=== PATIENT | male | born 1945 | race Caucasian/White ===

== ENCOUNTER 2016-10-22 07:48 | Inpatient (IN) | payer OTHER, MEDICARE ==
[~2016-10-22] VITALS: Ht 176.5 cm; Wt 123.2 kg
[2016-10-22] VITALS (10 sets, daily range): BP systolic 127–155; BP diastolic 68–91; PULSE 63–120; RESP 16–28; O2SAT 86–96
[~2016-10-22 07:48] MED LIST: ALBU18HF INH; ALBU2.5V4 INHALATION; ASPI-973 PO; COLC0.6T52 PO; DILT180C83 PO; DILT240C9 PO; FENO160T14 PO; FLUT16SP NS; FURO40TA4 PO; GABA-502 PO; GLPZ5T PO; HYDR-4150 PO; LEVO150T5 PO; LEVO500T79 PO; LISI-571 PO; LOV120 SUBQ; MOME13HF IH; MONT10TA20 PO; MULT-1073 PO; NIAC1000 PO; OMEG-38 PO; POTA10TA12 PO; PRAM0.5T3 PO; PRE10 PO; RANI150C4 PO; ROSU40TA PO; SLO64 PO; TIOT18CA3 IH; WARF5TAB7 PO; ZYL100 PO
[2016-10-22 08:19] LABS: APPEARANCE,URINE CLOUDY (CLEAR,HAZY); COLOR,URINE DARK YELLOW (YELLOW); OCCULT BLOOD,URINE LARGE (NEGATIVE); PH,URINE 5.5 (5.0-8.0); UROBILINOGEN,URINE NORMAL (NORMAL)
[2016-10-22] MEDS ORDERED: Albuterol-Ipratropium 3 mL Inhalation Solution NEB ONE (08:35)
[2016-10-22] MEDS ORDERED: Phenazopyridine 97.5 mg Tablet PO ONE (08:35)
[2016-10-22 08:50] LABS: BASOPHILS % (AUTO) 0.1 % (0-3); EOSINOPHILS % (AUTO) 0 % (0-5); MONOCYTES % (AUTO) 9.9 % (4-12); Mean Corpuscular Hemoglobin 30.8 pg (27.0-35.0); Mean Corpuscular Volume 91.4 fL (81-100); NEUTROPHILS % (AUTO) 82.7 % (40-74); Platelet Count 165 bil/L (150-400)
[2016-10-22] MEDS ORDERED: cefTRIAXone Inj 1,000 MG, Lidocaine PF 1% Inj 2.1 ML in Syringe 0 EACH IM ONE ×2 (08:50→09:20)
[2016-10-22] MEDS ORDERED: Ceftriaxone 1,000 mg/50 mL D5W Minibag Plus IV ONE ×2 (08:55)
[2016-10-22] MEDS ORDERED: Diltiazem CD 240 mg ER24 Capsule PO ONE (09:25)
[2016-10-22] MEDS ORDERED: Diltiazem 5 mg/mL 5 mL Inj IVPUSH ONE (09:30)
[2016-10-22] MEDS ORDERED: 0.9% Sodium Chloride 100 ML ONE (09:51)
[2016-10-22 09:57] LABS: INR 1.85 ratio
[2016-10-22] MEDS: Ceftriaxone 1,000 mg/50 mL D5W Minibag Plus IV ONE ×4 (10:02→10:59)
--- NOTE | 2016-10-22 10:11 | DRSVH ---
PROCEDURE: X-RAY CHEST ONE VIEW, PORTABLE ([id number]) INDICATIONS: short of breath TECHNIQUE: One view of the chest was acquired. COMPARISON: [facility], CR, XR CHEST 2VW, 08/28/2016, 12:04. FINDINGS: Surgical changes and devices: None. Lungs and pleura: No pleural effusions or pneumothorax. Lungs are clear. Mediastinum: Mediastinal contours appear normal. Heart size is normal. Bones and chest wall: No suspicious bony lesions. Overlying soft tissues appear unremarkable. IMPRESSION: Source of shortness of breath is not seen. Mildly reduced inspiratory volume. Dictated by: Carlton Nichole M.D. on 10/22/2016 at 10:09 Approved by: Carlton Nichole M.D. on 10/22/2016 at 10:09
[2016-10-22] MEDS ORDERED: 0.9% Sodium Chloride 1,000 ML IV ONE (10:45)
[2016-10-22] MEDS: Sodium Chloride LOK Flush 10 mL Syringe IVFLUSH SCH ×2 (10:53→23:49)
--- NOTE | 2016-10-22 10:54 | ED.REPORT ---
HPI- Male Date of Service Oct 22, 2016 ED Provider: Richard Wallis MD 70yoM with history of CAD with angioplasty x1, as well as Afib on diltiazem and warfarin, asthma on albuterol nebulizer and inhaler, and chronic lower back pain presents with increased urinary frequency urgency and dysuria. The patient denies any penile discharge, the patient has never had a UTI. The issues began yesterday. The patient states that two days ago his back began bothering him more bilaterally. He has a lumbar surgery performed November 2015 and since that time he has been relatively pain free. The back pain occurred 1 day before the urinary symptoms. The patient also describes some shortness of breath. He has a history of asthma and was on inhaled steroids until his insurance would not pay for them. He currently manages his asthma with only albuterol. Nursing Notes Stated Complaint: PAINFUL URINATION Chief Complaint: Male Abdominal Pain Nursing Notes Reviewed: Yes Allergies: Coded Allergies: Penicillins (Verified Allergy, Intermediate, HIVES, 12/16/15) Scheduled Allopurinol (Allopurinol) 100 Mg Tablet 100 MG PO BID Aspirin (Aspirin) 81 Mg Tablet 81 MG PO DAILY Calcium Carbonate/Vitamin D3 (Calcium + Vitamin D Tablet) 1 Each Tablet 2 EACH PO MORNING Diltiazem ER (Diltiazem ER) 240 Mg Cap.er.deg 240 MG PO MORNING Diltiazem ER (Diltiazem ER) 180 Mg Cap.er.24h 180 MG PO HS Fenofibrate (Fenofibrate) 160 Mg Tablet 160 MG PO DAILY Furosemide (Furosemide) 40 Mg Tablet 40 MG PO DAILY Gabapentin (Gabapentin) 100 Mg Capsule 100 MG MORNING Gabapentin (Gabapentin) 100 Mg Capsule 100 MG PO HS Glipizide (Glipizide) 5 Mg Tablet 5 MG PO BID Levothyroxine (Levothyroxine) 150 Mcg Tablet 150 MCG PO QAM Lisinopril (Lisinopril) 20 Mg Tablet 20 MG PO MORNING Magnesium Chloride (Slow-Mag) 64 Mg Tablet 2 TABLET PO QAM Multivits-Min/FA/Lycopene/Lut (Centrum Silver Tablet) 1 Each Tablet 1 EACH PO DAILY Niacin ER (Niaspan) 1,000 Mg Tablet 2,000 MG PO HS Potassium Chloride ER (Potassium Chloride ER) 10 Meq Tablet 20 MEQ PO DAILY TAKE WITH FOOD Pramipexole Dihydrochloride (Mirapex) 0.5 Mg Tablet 0.5 MG PO QPM Ranitidine (Ranitidine) 150 Mg Capsule 150 MG PO BID Rosuvastatin Calcium (Crestor) 40 Mg Tablet 40 MG PO DAILY Tamsulosin (Flomax) 0.4 Mg Capsule 0.4 MG PO BID Warfarin Sodium (Warfarin Sodium) 5 Mg Tablet 5 MG PO DAILY Scheduled PRN Albuterol Neb Soln (Albuterol Neb Soln) 2.5 Mg/3 Ml Vial.neb 1 VIAL INHALATION Q4H PRN PRN For Shortness of Breath Albuterol Sulfate (Ventolin HFA Inhaler) 200 Puff/18 Gm Inhaler 2 PUFF INH Q4 PRN PRN For Wheezing Colchicine (Colcrys) 0.6 Mg Tablet 1-2 TABLET PO PRN GOUT Fluticasone Propionate (Fluticasone Propionate Nasal) 16 Gm [place].susp 2 SPRAY NS DAILY PRN PRN Nasal Congestion Miscellaneous Medications [address]-3/Dha/Epa/Fish Oil (Fish Oil 1,000 mg Softgel) 1 Each Capsule 1 EACH PO General Time Seen by MD: 08:30 Chief Complaint Dysuria, Urinary frequency, Urinary urgency, Urination painful, Other Hx Obtained From: Patient Arrived By: Walk-in Onset Occurred: 1 day ago Context of Onset: Spontaneous Symptom Duration: Since onset Location: : Back Quality: Painful, Sharp, Throbbing Radiation: : Does not radiate Severity: Current: Mild Severity: Maximum: Moderate Recent Healthcare: No recent doctor visit, No recent hospitalization Similar Sx Previous: No Risk- Male Torsion Risk Stratification RF Statements: Risk factors reviewed Past Medical History Past Medical History Notes: PCP: Dr. North Past Medical History previous DC Reports: Asthma, COPD, Coronary artery disease, Diabetes mellitus, GERD, Hyperlipidemia, Hypertension Reports: Atrial fibrillation, Morbid Obesity, Thyroid disease Past Surgical History Laminectomy, 12/03/15 at [facility], [place] Cardiac stent placement Prostate surgery Knee surgery Reports: Back/neck surgery Family History Mother of CHF Smoking History Former Smoker Social History Alcohol Use: Denies alcohol use Drug Use: Denies drug use Other Social History: Good social support, Occupation retired [employer] Ambulatory Status Independent Review of Systems Basic Review of Systems Eyes: Vision NL, No discharge ENT: Hearing NL, No pain, No nasal congestion, No pharyngeal pain Respiratory: No cough, No wheeze Cardiovascular: No chest pain, No palpitations Hematologic: No bleeding, No bruising Endocrine: No cold intolerance, No heat intolerance, No weight gain, No weight loss Allergy / Immune: No allergy Neurologic: NL mental status, No weakness, No numbness Psychiatric: Normal thought content Constitutional: Denies: Chills, Fever GI: Reports: Constipation, Denies: Abdominal pain, Diarrhea, Hematemesis, Hematochezia, Melena, Vomiting Male: Reports Dysuria, Reports Urinary frequency, Reports Urinary urgency, Denies Hematuria, Denies Penile discharge, Denies Penile lesion, Denies Testicular pain, Denies Testicular swelling Musculoskeletal: Reports: Back pain, Denies: Extremity swelling, Joint pain Skin: Denies Diaphoresis, Denies Rash, Denies Unexplained bruises Complete sys rev & neg: except as marked. Physical Exam Initial Vital Signs Vital Signs (First) Date Time Temp Pulse Resp B/P Pulse Ox O2 Delivery O2 Flow Rate FiO2 10/22/16 07:53 37.0 63 28 93 Room Air 10/22/16 08:09 148/91 Initial VS: Reviewed General/Constitutional: Well-developed, Well-nourished Head / Eyes: Atraumatic, Normocephalic, PERRL ENT: Mucous membranes moist, Conjunctiva normal, No scleral icterus Neck: Supple, Non-tender, Full range of motion Abdomen / GI: Soft, Non-tender, No guarding, No rebound, No distention Back: No CVA tenderness Lymphatic: No lymphadenopathy Extremities: Vascular intact, Neuro intact, No swelling, No tenderness Skin: Warm, Dry, No cyanosis Neurologic: Alert, Oriented, Nonfocal Psychiatric: Mood/affect normal, Behavior normal, Normal thought content General/Constitutional: Awake, Alert, No acute distress, Cooperative, Not toxic appearing Abdomen: Soft, Non-tender, No guarding, No rebound, BS normoactive, No distention, No palpable mass, No pulsatile mass Organomegaly / Mass / Hernia: Positive: Hernia umbilical Respiratory / Chest: No rales, No rhonchi, No wheezing, No stridor, No chest tenderness Diminished Breath Sounds: Positive: Decreased bilateral Cardiovascular: No gallop, No murmurs, No rubs, Peripheral circulation NL, Pulses = bilaterally Heart Rate / Rhythm: Positive: Irreg irregular rhythm, Tachycardia Interpretation & Diagnostics Lab Results Interpretation Result Diagram: 10/22/1684210/22/16842 Test 10/22/16 08:00 10/22/16 08:30 10/22/16 08:43 Urine Color Dark yellow (YELLOW) Urine Appearance Cloudy (CLEAR,HAZY) Urine pH 5.5 (5.0-8.0) Urine Specific [place] 1.030 (1.003-1.035) Urine Protein 100mg/dL (NEG,TRACE) Urine Glucose (UA) Negativemg/dL (NEGATIVE) Urine Ketones Tracemg/dL (NEGATIVE) Urine Occult Blood Large (NEGATIVE) Urine Nitrite Positive (NEGATIVE) Urine Bilirubin Negative (NEGATIVE) Urine Urobilinogen Normalmg/dL (NORMAL) Urine Leukocyte Esterase Small (NEGATIVE) Urine RBC 3-10/hpf (0-2) Urine WBC 11-50/hpf (0-5) Urine Epithelial Cells Occasional/hpf (NONE-MOD) Urine Crystals None seen (NONE SEEN) Urine Bacteria Moderate/hpf (NONE-FEW) Urine Hyaline Casts None/lpf (NONE) Urine Granular Casts None seen (NONE SEEN) Urine Waxy Casts None seen (NONE SEEN) Urine Red Blood Cell Casts None seen (NONE SEEN) Urine White Blood Cell Casts None seen (NONE SEEN) Urine Mucus None seen (None Seen) Urine Trichomonas None seen (NONE SEEN) Urine Yeast None (NONE SEEN) Urinalysis Comment None Urine Culture Reflexed Indicated Troponin T 0.033ug/L (0.0-0.011) White Blood Count 22.9th/mm3 (3.8-10.1) Red Blood Count 4.78mil/mm3 (4.40-5.80) Hemoglobin 14.7g/dL (13.8-17.2) Hematocrit 43.7% (41.0-50.0) Mean Corpuscular Volume 91.4fL (81-100) Mean Corpuscular Hemoglobin 30.8pg (27.0-35.0) Mean Corpuscular Hemoglobin Concent 33.6% (32.0-37.0) Red Cell Distribution Width 15.3% (12.3-15.4) Platelet Count 165bil/L (150-400) Neutrophils (%) (Auto) 82.7% (40-74) Lymphocytes (%) (Auto) 7.0% (14-46) Monocytes (%) (Auto) 9.9% (4-12) Eosinophils (%) (Auto) 0% (0-5) Basophils (%) (Auto) 0.1% (0-3) Prothrombin Time 20.1sec (8.1-12.5) Prothromb Time International Ratio 1.85ratio Sodium Level 137mEq/L (134-144) Potassium Level 3.6mEq/L (3.5-5.2) Chloride Level 96mEq/L (97-108) Carbon Dioxide Level 25mmol/L (18-29) Blood Urea Nitrogen 16mg/dL (8-27) Creatinine 1.30mg/dL (0.76-1.27) Estimat Glomerular Filtration Rate 58mL/min (>59) Glucose Level 162mg/dL (60-99) Lactic Acid Level 1.5mmol/L (0.4-2.0) Calcium Level 9.4mg/dL (8.5-10.1) Total Bilirubin 1.1mg/dL (0.0-1.2) Aspartate Amino Transf (AST/SGOT) 20U/L (0-50) Alanine Aminotransferase (ALT/SGPT) 16U/L (0-44) Alkaline Phosphatase 49U/L (25-160) Total Protein 6.6g/dL (6.4-8.4) Albumin 4.1g/dL (3.4-5.0) Procalcitonin 0.19ng/mL (0.00-0.08) Hold Miller Top Tube Received (Received) ECG Interpretation Normal ECG Interpretation: No acute ischemic changes Abnormal Rate: 100 Rhythm / Conduction: Atrial fibrillation Re-Eval/Medical Decision Med Decision/Clinical Course 70yoM with CAD, Afib, COPD, presents with increased urinary frequency urgency and dysuria. The patient began to develop a temperature while in the ED. Urine consistent with infection and new onset fever consistent with pyelonephritis. Labs ordered for FENA calculation. IV fluids and Rocephin IV started for pyelonephritis. The patient also stated that he has been having some shortness of breath, history of asthma/COPD he is not taking inhaled steroids due to out of pocket cost. Physical exam has decreased air movement but no notable wheezing or rales. CXR negative for pneumonia. However EKG shows afib tachycardia without acute ischemic changes. The patient has an elevated troponin x1 in the ED. The patient denies history of chronic kidney disease however review of previous labs show GFR in 60s consistent with Stage 2 CKD. Elevated Troponin could be due to CKD but must be trended. The patient is on Warfarin for afib. Patient to be admitted to [facility] given need for antibiotics and cardiac monitoring. Consultation : Referral / Consult Name: Amado Spear MD Consulted With: Hospitalist Director Of Vital Statistics: Accepts admit Discharge & Departure Impression: Primary Impression: Pyelonephritis Additional Impressions: Elevated troponin level Afib Atrial fibrillation type: persistent Qualified Code: I48.1 - Persistent atrial fibrillation Tachycardia COPD (chronic obstructive pulmonary disease) COPD type: COPD with acute exacerbation Qualified Code: J44.1 - Chronic obstructive pulmonary disease with (acute) exacerbation Disposition: ADMITTED TO HOSPITAL Discharge Condition All VS Reviewed: Yes Condition: Stable Referrals: Triston North MD (PCP) Attending Statment The patient was seen and examined together with Dr. Velez on 10/22/16 and I agree with the history, exam and plan as outlined in the note above. copies to: Triston North MD, Nicholas K DO Oct 22, 2016 09:32 Richard Wallis MD Oct 22, 2016 12:45
[2016-10-22] MEDS ORDERED: GLIP5POW MC (11:18)
[2016-10-22] MEDS ORDERED: GLPZ5T PO (11:19)
[2016-10-22] MEDS ORDERED: GABA-500 (11:22)
[2016-10-22] MEDS ORDERED: GABA-500 PO (11:22)
[2016-10-22] MEDS ORDERED: LISI-567 PO (11:24)
[2016-10-22] MEDS ORDERED: CALC-140 PO (11:33)
[2016-10-22] MEDS ORDERED: TAMS0.4C98 PO (11:33)
[2016-10-22] MEDS: 0.9% Sodium Chloride 1,000 ML IV SCH (12:13)
[2016-10-22] MEDS ORDERED: Alum-Mag Hydrox-Simeth 30 mL Suspension PO PRN (12:15)
[2016-10-22] MEDS ORDERED: Ondansetron 2 mg/mL 2 mL Inj IVPUSH PRN (12:15)
[2016-10-22] MEDS: cefTRIAXone Inj 2,000 MG in Dextrose 5% Minibag Plus 50 ML IV SCH (12:15)
[2016-10-22] MEDS ORDERED: MeTOProlol 1 mg/mL 5 mL Inj IVPUSH ONE (13:15)
--- NOTE | 2016-10-22 16:11 | DRSVH ---
PROCEDURE: US RENAL SONOGRAM INDICATIONS: suspected pyelonephritis TECHNIQUE: Real-time scanning was performed of the kidneys and bladder, with image documentation. COMPARISON: None. FINDINGS: Kidneys: Kidneys are normal in size. Right kidney measures 13.5 cm long; left kidney measures 13.3 cm long. Right renal cortical thickness is 1.6 cm; left renal cortical thickness is 1.4 cm. Renal c ortical echotexture is normal. No hydronephrosis or nephrolithiasis. No suspicious solid mass lesio ns. Right renal cyst above the superior pole measuring 20 mm. Bladder: Pre-void bladder volume is 51 mL. Post-void residual is 15 mL. Pre-void images demonstrat e no intraluminal masses or stones. On pre-void images, there ureteral jets are noted with color Dop pler interrogation. (Of note, ureteral jets may not be detectable in up to 25% of cases due to insuf ficient differences in specific gravity between ureteral and bladder urine). Miscellaneous: No free pelvic fluid. IMPRESSION: 2 cm right renal cyst otherwise kidneys are grossly normal. Dictated by: Ramon Cerrato [facility] Interpreted: Pilar Raymundo MD on 10/22/2016 at 16:09 Transcribed by: DAVID on 10/22/2016 at 16:10 Approved by: Pilar Raymundo MD, PhD on 10/22/2016 at 17:15
[2016-10-22] MEDS ORDERED: MeTOProlol 1 mg/mL 5 mL Inj IVPUSH PRN (16:20)
[2016-10-22] MEDS ORDERED: Glucose 40% Oral Gel 15 Gm Tube PO PRN (16:25)
--- NOTE | 2016-10-22 16:29 | PCM.HPMED ---
Subjective Date of Service Oct 22, 2016 Primary Provider: Admitting Physician: Amado Spear MD Primary Care Physician: Triston North MD Attending Physician: Amado Spear MD Chief Complaint: Dysuria, shortness of breath History of Present Illness: Patient is a 70 year old male with history of CAD with angioplasty, Afib, asthma , BPH, and chronic lower back pain who presents with increased urinary frequency urgency and dysuria. He states his symptoms started yesterday afternoon and worsened throughout the night. He reports he has been having urgency, going to urinate every 15 minutes at worst overnight, with small amounts of urine. He states his bladder feels full and he does not completely empty it. He states he was in his usual state of health other than some shortness of breath related to his asthma over the past 4 weeks since a URI about a month ago. The patient states that two days ago his back began bothering him more bilaterally. He has a lumbar surgery performed November 2015 and since that time he has been relatively pain free. The back pain occurred 1 day before the urinary symptoms. He reports some right sided flank pain as well. The patient denies any penile discharge, and has never had a UTI. In the ED, the patient was febrile at 38 C, tachycardic at 120. WBC was 22.9, Cr was 1.3, glucose 162. Lactic acid was normal at 1.5. Troponin was 0.033, procalcitonin 0.19. CXR was normal. EKG showed afib with RVR without ischemic changes. The patient denies history of chronic kidney disease however review of previous labs show GFR in 60s consistent with Stage 2 CKD. He has a history of asthma/COPD he is not taking inhaled steroids due to out of pocket cost. Review of Systems: Comprehensive review of systems conducted and was negative except for the pertinent positives listed above. Allergies Coded Allergies: Penicillins (Verified Allergy, Intermediate, HIVES, 12/16/15) Home Medications Albuterol neb Albuterol inhaler Allopurinol 100 mg BID Aspirin 81 mg daily Calcium/Vitamin D Colchicine 0.6 - 1.2 mg PRN Diltiazem 240 mg AM, 180 mg PM Fenofibrate 160 mg daily Fluticasone nasal spray Furosemide 40 mg daily Gabapentin 100 mg BID Glipizide 5 mg BID Levothyroxine 150 mcg daily Lisinopril 20 mg daily Mg chloride 128 mg daily Multivitamin Niacin 2000 mg qhs Fish oil KCl 20 meq daily Mirapex 0.5 mg qPM Ranitidine 150 mg BID Rosuvastatin 40 mg daily Tamsulosin 0.4 mg BID Warfarin 5 mg daily PMH Asthma COPD Coronary artery disease with prior PR Diabetes mellitus GERD Hyperlipidemia Hypertension Atrial fibrillation Morbid Obesity Hypothyroidism Surgical History Laminectomy, 12/03/15 at [facility], [place] Cardiac stent placement Prostate surgery Knee surgery Back/neck surgery Family History Mother - of CHF Father - PR Social History Hx Alcohol Use: Yes (occ,) Hx Substance Use: No Hx Tobacco Use: Yes (1.5ppd, for 25 yrs, quit 12 years ago) Smoking Status: Former Smoker Exam Vital Signs Vital Sign - Last Date Time Temp Pulse Resp B/P Pulse Ox O2 Delivery O2 Flow Rate FiO2 10/22/16 15:05 36.7 119 20 127/68 95 Room Air Exam General: Alert, Oriented X3, Cooperative, No Acute Distress Head: Normocephalic, atraumatic. External ears normal. Eyes: PERRLA, EOMI. Anicteric sclerae. Mouth: Mouth Normal, Mucous Membranes Moist/[place] Neck: Neck supple with full range of motion. Chest & Lungs: Clear to auscultation bilaterally with no crackles, wheezes, or rhonchi. Cardiovascular: Tachycardic, irregularly irregular, Normal S1, Normal S2, No Murmurs/Rubs/Gallops Abdomen: Non-tender, Non-distended, No masses, Normoactive bowel tones, Soft Musculoskeletal: Normal Range of Motion Extremities: No cyanosis/clubbing/edema bilaterally Neurological: Grossly Neurologically Intact, Normal Speech Lab and Diagnostics Result Diagram: 10/22/16 0843 10/22/16 0843 Assessment & Plan Patient is a 70 year old male with history of CAD with angioplasty, Afib, asthma , BPH, and chronic lower back pain who presents with increased urinary frequency urgency and dysuria. Admitted for UTI with possible pyelonephritis, sepsis, and afib with RVR. 1. Sepsis, acute. Present on admission. - Pt presents with fever, leukocytosis, tachycardia. Lactic acid normal. Likely secondary to UTI and possible pyelonephritis. - Ceftriaxone IV - Blood and urine cultures pending - NS @ 100 ml/hr 2. Urinary tract infection, acute. Present on admission. - With possible pyelonephritis given sepsis and right flank pain. UA showed positive nitrite, small leukocyte esterase, 11-50 WBC, moderate bacteria. - Ceftriaxone IV - Urine cultures pending. - Renal ultrasound ordered 3. Atrial fibrillation with rapid ventricular rate. Present on admission. Improving. - Pt has hx of afib on Warfarin and diltiazem. Possibly worsened secondary to infection. Received Dilt 20 mg IV and metoprolol 5 mg IV, and rate improved to low 100s. - Continue warfarin - Continue home diltiazem. - Metoprolol tartrate 5 mg IV q4h PRN HR >120 persisting for more than 5-10 mins. 4. Acute kidney injury. Present on admission. - Cr 1.3 on admission. Baseline Cr 1 - 1.1. Mild elevation likely secondary to sepsis and possible pyelo, although given his urinary retention, it could be post-obstructive. - Avoid nephrotoxic medications - NS @ 100 ml/hr - Hold home Lasix, lisinopril, allopurinol, colchicine. 5. Elevated troponin, acute. Present on admission. - Likely secondary to demand ischemia with sepsis. He also appears to have CKD Stage 2 based on past Cr, which may also play a role - Will recheck troponin 6. Diabetes mellitus, chronic. Present on admission. - BG 162 on admission. - Humalog low dose correctional scale - Diabetic diet - A1c ordered - Continue home gabapentin - Hold glipizide 7. BPH, chronic - Continue home tamsulosin 8. Asthma/COPD - Albuterol neb q4h PRN 9. Coronary artery disease with prior PR - Continue aspirin 10. GERD - Famotidine 20 mg BID 11. Hyperlipidemia - Hold rosuvastatin, fenofibrate 12. Hypothyroidism - Continue Levothyroxine Other Medical Conditions Hypertension Morbid Obesity - Bowel regimen as needed - Antiemetic as needed Patient is admitted under inpatient status with expected length of stay greater than 2 midnights due to severity of presenting symptoms, risk of adverse event, and complexity of treatment plan. Time spent 55 minutes Attending Statement patient was seen and examined with Dr Dacosta on 10/22/16 ,I agree with the history,exam ,assessment and plan as outlined above copies to: Triston North MD, Andrew R Oct 22, 2016 16:29 Amado Spear MD Oct 22, 2016 22:25
--- NOTE | 2016-10-22 17:03 | PCM.CONPHA ---
Subjective Date of Service: Oct 22, 2016 Dysuria, shortness of breath Reason for Pharmacy Consult: Anticoagulation Management Objective Vital Signs Date Time Temp Pulse Resp B/P Pulse Ox O2 Delivery O2 Flow Rate FiO2 10/22/16 16:06 37.8 112 20 132/78 93 Room Air 10/22/16 15:05 36.7 119 20 127/68 95 Room Air 10/22/16 12:31 120 10/22/16 12:10 37.8 119 127/68 95 Room Air 10/22/16 10:12 38.0 118 16 137/78 95 Room Air 10/22/16 09:03 88 18 96 Room Air 10/22/16 08:09 148/91 10/22/16 07:53 37.0 63 28 93 Room Air Weight (Kilograms): 122.000 Height (Feet): 5 Height (Inches): 9.50 Test 10/22/16 08:00 10/22/16 08:43 10/22/16 15:25 10/22/16 16:36 Urine Color Dark yellow (YELLOW) Urine Appearance Cloudy (CLEAR,HAZY) Urine pH 5.5 (5.0-8.0) Urine Specific [place] 1.030 (1.003-1.035) Urine Protein 100mg/dL (NEG,TRACE) Urine Glucose (UA) Negativemg/dL (NEGATIVE) Urine Ketones Tracemg/dL (NEGATIVE) Urine Occult Blood Large (NEGATIVE) Urine Nitrite Positive (NEGATIVE) Urine Bilirubin Negative (NEGATIVE) Urine Urobilinogen Normalmg/dL (NORMAL) Urine Leukocyte Esterase Small (NEGATIVE) Urine RBC 3-10/hpf (0-2) Urine WBC 11-50/hpf (0-5) Urine Epithelial Cells Occasional/hpf (NONE-MOD) Urine Crystals None seen (NONE SEEN) Urine Bacteria Moderate/hpf (NONE-FEW) Urine Hyaline Casts None/lpf (NONE) Urine Granular Casts None seen (NONE SEEN) Urine Waxy Casts None seen (NONE SEEN) Urine Red Blood Cell Casts None seen (NONE SEEN) Urine White Blood Cell Casts None seen (NONE SEEN) Urine Mucus None seen (None Seen) Urine Trichomonas None seen (NONE SEEN) Urine Yeast None (NONE SEEN) Urinalysis Comment None Urine Culture Reflexed Indicated White Blood Count 22.9th/mm3 (3.8-10.1) Red Blood Count 4.78mil/mm3 (4.40-5.80) Hemoglobin 14.7g/dL (13.8-17.2) Hematocrit 43.7% (41.0-50.0) Mean Corpuscular Volume 91.4fL (81-100) Mean Corpuscular Hemoglobin 30.8pg (27.0-35.0) Mean Corpuscular Hemoglobin Concent 33.6% (32.0-37.0) Red Cell Distribution Width 15.3% (12.3-15.4) Platelet Count 165bil/L (150-400) Neutrophils (%) (Auto) 82.7% (40-74) Lymphocytes (%) (Auto) 7.0% (14-46) Monocytes (%) (Auto) 9.9% (4-12) Eosinophils (%) (Auto) 0% (0-5) Basophils (%) (Auto) 0.1% (0-3) Prothrombin Time 20.1sec (8.1-12.5) Prothromb Time International Ratio 1.85ratio Sodium Level 137mEq/L (134-144) Potassium Level 3.6mEq/L (3.5-5.2) Chloride Level 96mEq/L (97-108) Carbon Dioxide Level 25mmol/L (18-29) Blood Urea Nitrogen 16mg/dL (8-27) Creatinine 1.30mg/dL (0.76-1.27) Estimat Glomerular Filtration Rate 58mL/min (>59) Glucose Level 162mg/dL (60-99) Lactic Acid Level 1.5mmol/L (0.4-2.0) Calcium Level 9.4mg/dL (8.5-10.1) Total Bilirubin 1.1mg/dL (0.0-1.2) Aspartate Amino Transf (AST/SGOT) 20U/L (0-50) Alanine Aminotransferase (ALT/SGPT) 16U/L (0-44) Alkaline Phosphatase 49U/L (25-160) Total Protein 6.6g/dL (6.4-8.4) Albumin 4.1g/dL (3.4-5.0) Procalcitonin 0.19ng/mL (0.00-0.08) Hold Miller Top Tube Received (Received) Urine Random Creatinine 86mg/dL (22-328) Urine Random Sodium 45mEq/L Assessment/Plan Assessment/Plan Warfarin per Rx Indication: A-Fib INR Goal is 2 - 3; Today:: 1.85 Continue home dose of 5mg for now Daily INR ordered x 5 days Fransisco Steward PharmD Oct 22, 2016 17:03
[2016-10-22] MEDS: Insulin LISPRO 300 Unit/3 mL Inj SUBQ SCH ×2 (17:30→21:36)
--- NOTE | 2016-10-22 19:09 | NUR ---
TELE Per reliability technicians, Afib 110-120s. Pt denies chest px or SOB. 93% RA. Pt reports abdominal bloating, but denies abdominal discomfort or constipation. Pt appears flushed and slightly diaphoretic, temperature 37.8C, denies n/v. Tolerating PO intake well. NS currently infusing at 100 mls/hr per MDs orders. Pt reports diabetic neuropathy, with bilateral brown abrasions present on admission.
[2016-10-22] MEDS: Diltiazem CD 180 mg ER24 Capsule PO SCH (20:48)
[2016-10-23] VITALS (11 sets, daily range): BP systolic 138–154; BP diastolic 78–87; PULSE 67–128; RESP 18–22; O2SAT 92–96
[2016-10-23] MEDS: 0.9% Sodium Chloride 1,000 ML IV SCH ×4 (00:53→21:47)
[2016-10-23 03:29] LABS: BASOPHILS % (AUTO) 0.1 % (0-3); EOSINOPHILS % (AUTO) 0.1 % (0-5); MONOCYTES % (AUTO) 7.9 % (4-12); Mean Corpuscular Hemoglobin 30.6 pg (27.0-35.0); Mean Corpuscular Volume 91.9 fL (81-100); NEUTROPHILS % (AUTO) 84.8 % (40-74); Platelet Count 146 bil/L (150-400)
[2016-10-23 03:41] LABS: INR 1.59 ratio
[2016-10-23 03:47] LABS: Magnesium 1.4 mg/dL (1.6-2.6)
[2016-10-23] MEDS ORDERED: Mag Sulf 4 Gm/100 mL IV Premix (Mag < 1.6 & Creat < 2) IV ONE (05:15)
[2016-10-23] MEDS ORDERED: Potassium Chloride Oral 20 mEq SR Tab(K 3 - 3.7 & Creat < 2) PO ONE (05:15)
--- NOTE | 2016-10-23 06:04 | NUR ---
magnesium/potassium pts morning magnesium 1.4 and potassium 3.6 called MD received order for repletion protocol, gave 4gm IV rider and 40mEq PO KCL, will re-check labs at 0930,
--- NOTE | 2016-10-23 06:05 | NUR ---
AFIB pt in AFIB rate 100-120 with bursts of rate up to 140s not sustained more then 5 minutes, pt asymptomatic with it. if it dose sustain there is an order for IV lopressor.
[2016-10-23] MEDS: Albuterol 2.5 mg/3 mL Inhalation Solution NEB PRN ×2 (06:14→20:39)
[2016-10-23] MEDS ORDERED: Magnesium Sulf 2 Gm/50mL Water 2 GM in IV Premix 1 EACH IV ONE (07:50)
[2016-10-23] MEDS: Diltiazem CD 240 mg ER24 Capsule PO SCH (08:21)
[2016-10-23] MEDS: Sodium Chloride LOK Flush 10 mL Syringe IVFLUSH SCH ×3 (08:21→23:49)
[2016-10-23] MEDS: Insulin LISPRO 300 Unit/3 mL Inj SUBQ SCH ×4 (08:44→21:47)
--- NOTE | 2016-10-23 09:18 | NUR ---
Social Work: Initial Assessment D: Per EMR review, pt is a 70 year old male admitted for pyelonephritis, elevated troponin. Pt is [employer] with no LTC insurance or VA Benefits. PCP is Triston North MD. NOK Is Shiloh Lopez, spouse, . Advanced directives not completed, information provided to pt by LODGING FACILITIES MANAGER. Readmit score is moderate, 4/8. LODGING FACILITIES MANAGER met with pt and spouse at bedside. Sw role explained and contact information provided. See initial assessment. Pt and spouse live in a single-story home in [place]. Pt has 2 steps to enter and is I with ambulation and ADLs. Pt continues to drive, uses no DME and has never had home health or skilled rehab. Pt and spouse anticipate no needs or concerns with discharge home. Pt's spouse will transport when medically ready. Pt has been ambulating I during admission. A: Pt who is I at baseline. P: Anticipate pt to discharge home via POV once medically stable; LODGING FACILITIES MANAGER to continue to follow if needs arise. ATTILA Ross Addendum: 10/23/16 at 0922 by TERRENCE DANIELLE Amended: Links added.
[2016-10-23 10:59] LABS: Magnesium 2.1 mg/dL (1.6-2.6)
[2016-10-23] MEDS: cefTRIAXone Inj 2,000 MG in Dextrose 5% Minibag Plus 50 ML IV SCH (12:11)
--- NOTE | 2016-10-23 13:44 | PCM.PNMED ---
Subjective Date of Service Oct 23, 2016 Subjective Patient is a 70 year old male with history of CAD with angioplasty, Afib, asthma , BPH, and chronic lower back pain who presents with increased urinary frequency urgency and dysuria. He states his symptoms started yesterday afternoon and worsened throughout the night. He reports he has been having urgency, going to urinate every 15 minutes at worst overnight, with small amounts of urine. He states his bladder feels full and he does not completely empty it. He states he was in his usual state of health other than some shortness of breath related to his asthma over the past 4 weeks since a URI about a month ago. The patient states that two days ago his back began bothering him more bilaterally. He has a lumbar surgery performed November 2015 and since that time he has been relatively pain free. The back pain occurred 1 day before the urinary symptoms. He reports some right sided flank pain as well. The patient denies any penile discharge, and has never had a UTI. Overnight event: no acute overnight events. Today: Patient lying in bed in no acute distress. Some mild fevers early this morning 38C. Patient reports feeling okay. Denies headache, shortness of breath , chest pain, nausea, vomiting, abdominal pain, constipation, diarrhea. Reports continued mild dysuria and decreased urine output. Denies hematuria. Exam Vital Signs Vital Sign - Last Date Time Temp Pulse Resp B/P Pulse Ox O2 Delivery O2 Flow Rate FiO2 10/23/16 11:05 36.7 67 18 154/80 92 Room Air Intake and Output 10/22/16 10/22/16 10/23/16 Cumulative From/Thru 15:00 23:00 07:00 10/22/16 07:53 - 10/23/16 06:37 Intake Total 1605 ml 620 ml 1780 ml 4005 ml Output Total 600 ml 1050 ml 1650 ml Balance 1605 ml 20 ml 730 ml 2355 ml Intake Oral 620 ml 520 ml 1140 ml IV Total 1605 ml 1260 ml 2865 ml Output Urine Total 600 ml 1050 ml 1650 ml # Bowel Movements 0 0 Exam General: Alert, Oriented X3, Cooperative, No Acute Distress Head: Normocephalic, atraumatic. External ears normal. Eyes: PERRLA, EOMI. Anicteric sclerae. Mouth: Mouth Normal, Mucous Membranes Moist/[place] Neck: Neck supple with full range of motion. Chest & Lungs: Clear to auscultation bilaterally with no crackles, wheezes, or rhonchi. Cardiovascular: Tachycardic, irregularly irregular, Normal S1, Normal S2, No Murmurs/Rubs/Gallops Abdomen: Non-tender, Non-distended, No masses, Normoactive bowel tones, Soft Musculoskeletal: Normal Range of Motion Extremities: No cyanosis/clubbing/edema bilaterally Neurological: Grossly Neurologically Intact, Normal Speech IVs and Medications Medications Reviewed: Medications were reviewed in detail Lab and Diagnostics Result Diagram: 10/23/16 0225 10/23/16 1000 Assessment & Plan Patient is a 70 year old male with history of CAD with angioplasty, Afib, asthma , BPH, and chronic lower back pain who presents with increased urinary frequency urgency and dysuria. Admitted for UTI with possible pyelonephritis, sepsis, and afib with RVR. 1. Gram negative septicemia, acute. Present on admission. improving. - Pt presents with fever, leukocytosis, tachycardia. Lactic acid normal. 2nd to UTI/pyelonephritis and bacteremia. - Continue Ceftriaxone IV - Blood and urine Gram neg rods. - Continue NS @ 100 ml/hr 2. Urinary tract infection, acute. Present on admission. - With possible pyelonephritis given sepsis and right flank pain. UA showed positive nitrite, small leukocyte esterase, 11-50 WBC, moderate bacteria. - Ceftriaxone IV - Urine cultures Gram neg rods. - Renal ultrasound pos for cyst. as above. 3. Bacteremia, present on admission. active. - Afebrile, hypertensive, normal HR, RR. - Blood cx - gram neg rods. - Continue IV Ceftriaxone for today, transition to PO tomorrow. 3. Atrial fibrillation with rapid ventricular rate. Present on admission. Improving. - Pt has hx of afib on Warfarin and diltiazem. Possibly worsened secondary to infection. Received Dilt 20 mg IV and metoprolol 5 mg IV, and rate improved to low 100s. - Continue home warfarin. - Continue home diltiazem. - Metoprolol tartrate 5 mg IV q4h PRN HR >120 persisting for more than 5-10 mins. 4. Acute kidney injury. Present on admission.Resolved - Cr 1.3 on admission. Baseline Cr 1 - 1.1. Mild elevation likely secondary to sepsis and possible pyelo, although given his urinary retention, it could be post-obstructive. - Avoid nephrotoxic medications - NS @ 100 ml/hr - Hold home Lasix, lisinopril, allopurinol, colchicine. 5. Elevated troponin, acute. Present on admission. - Likely secondary to demand ischemia with sepsis. He also appears to have CKD Stage 2 based on past Cr, which may also play a role - Will recheck troponin - Continues to trend down. 6. Diabetes mellitus, chronic. Present on admission. - BG 162 on admission. - Humalog low dose correctional scale - Diabetic diet - A1c 7.9 - Continue home gabapentin - Hold home glipizide 7. BPH, chronic - Continue home tamsulosin 8. Asthma/COPD - Albuterol neb q4h PRN 9. Coronary artery disease with prior CA - Continue aspirin 10. GERD - Famotidine 20 mg BID 11. Hyperlipidemia - Hold rosuvastatin, fenofibrate 12. Hypothyroidism - Continue Levothyroxine 13. Morbid Obesity, present on admission. - BMI 39.8 14. Chronic Hypertension, not present on admission, active. - Will continue home medication. Acetaminophen for mild pain when necessary. Bowel regimen Senna and MiraLAX scheduled and PRN. Zofran when necessary for nausea and vomiting. SubQ heparin held for now. SCDs in place. High-risk medications: Warfarin possible discharge in 1-2 days on po antibiotics once sensitivity is available Pain Evaluation: Adequate Pain Control Attending Statement The patient was seen and examined together with Dr. Herrera on 10/23/2016 and I agree with the history, exam and plan as outlined in the note above. JESSICA HERRERA DO Oct 23, 2016 13:43 Amado Spear MD Oct 23, 2016 18:59
--- NOTE | 2016-10-23 15:31 | PCM.PHAPRO ---
Progress Date of Service: Oct 23, 2016 Assessment/Plan Warfarin per Rx Indication: A-Fib INR Goal is 2 - 3; Today:: 1.59 1-Oct 2-Oct 1.85 1.59 -0.26 5 5 MG Continue home dose of 5mg for now Pharmacy appreciates consult and will continue to monitor. THANKS! Tiffany Cortes PharmD Oct 23, 2016 15:31
[2016-10-23] MEDS: Diltiazem CD 180 mg ER24 Capsule PO SCH (20:30)
[2016-10-24] VITALS (9 sets, daily range): BP systolic 149–191; BP diastolic 73–116; PULSE 69–153; RESP 18–24; O2SAT 94–98
[2016-10-24 03:03] LABS: BASOPHILS % (AUTO) 0.2 % (0-3); EOSINOPHILS % (AUTO) 0.2 % (0-5); MONOCYTES % (AUTO) 9.5 % (4-12); Mean Corpuscular Hemoglobin 30.7 pg (27.0-35.0); Mean Corpuscular Volume 91.8 fL (81-100); NEUTROPHILS % (AUTO) 77.6 % (40-74); Platelet Count 168 bil/L (150-400)
[2016-10-24 03:15] LABS: INR 1.66 ratio
[2016-10-24 03:44] LABS: TROPONIN T 0.012 ug/L (0.0-0.011)
[2016-10-24] MEDS: Diltiazem CD 240 mg ER24 Capsule PO SCH (07:52)
[2016-10-24] MEDS: Sodium Chloride LOK Flush 10 mL Syringe IVFLUSH SCH ×2 (07:52→16:19)
[2016-10-24] MEDS: Insulin LISPRO 300 Unit/3 mL Inj SUBQ SCH ×4 (07:54→22:00)
[2016-10-24] MEDS ORDERED: [UNRECOGNIZED DRUG - OTHER] PO SCH (08:30)
[2016-10-24] MEDS ORDERED: Non-Formulary Medication (Multivits-Min/FA/Lycopene/Lut (Centrum Silver Tablet) 1 EACH) PO SCH (08:30)
[2016-10-24] MEDS ORDERED: CALCIUM CARBONATE PO SCH (08:30)
[2016-10-24] MEDS ORDERED: VITAMIN D3 PO SCH (08:30)
[2016-10-24] MEDS: Magnesium Chloride SR 64 mg ER24 Tablet PO SCH (10:06)
[2016-10-24] MEDS: Polyethylene Glycol (PEG) 17 Gm Powder PO PRN (10:08)
[2016-10-24] MEDS: Potassium Chloride 20 mEq SR Tablet PO SCH (10:10)
[2016-10-24] MEDS ORDERED: Meropenem Inj 1,000 MG in IV Premix 1 EACH IV SCH ×2 (10:30→11:19)
[2016-10-24] MEDS ORDERED: Furosemide 10 mg/mL 2 mL Inj IVPUSH ONE (10:35)
[2016-10-24] MEDS: Albuterol 2.5 mg/3 mL Inhalation Solution NEB PRN ×2 (10:52→19:41)
--- NOTE | 2016-10-24 11:35 | PCM.PNMED ---
Subjective Date of Service Oct 24, 2016 Subjective no new complaints,afebrile,prelim sensitivity ESBL ,switched to meropenem,VALERIE resolved ,resumed home lasix and lisinopril Exam Vital Signs Vital Sign - Last Date Time Temp Pulse Resp B/P Pulse Ox O2 Delivery O2 Flow Rate FiO2 10/24/16 10:52 153 18 95 Room Air 10/24/16 07:44 36.8 155/91 Intake and Output 10/23/16 10/23/16 10/24/16 Cumulative From/Thru 15:00 23:00 07:00 10/22/16 07:53 - 10/24/16 06:27 Intake Total 2274 ml 1692 ml 7971 ml Output Total 750 ml 500 ml 2900 ml Balance 1524 ml 1192 ml 5071 ml Intake Oral 1200 ml 400 ml 2740 ml IV Total 1074 ml 1292 ml 5231 ml Output Urine Total 750 ml 500 ml 2900 ml # Voids 1 1 # Bowel Movements 0 Exam General: Alert, Oriented X3, Cooperative, No Acute Distress Head: Normocephalic, atraumatic. External ears normal. Eyes: PERRLA, EOMI. Anicteric sclerae. Mouth: Mouth Normal, Mucous Membranes Moist/[place] Neck: Neck supple with full range of motion. Chest & Lungs: Clear to auscultation bilaterally with no crackles, wheezes, or rhonchi. Cardiovascular: Tachycardic, irregularly irregular, Normal S1, Normal S2, No Murmurs/Rubs/Gallops Abdomen: Non-tender, Non-distended, No masses, Normoactive bowel tones, Soft Musculoskeletal: Normal Range of Motion Extremities: No cyanosis/clubbing/edema bilaterally Neurological: Grossly Neurologically Intact, Normal Speech IVs and Medications Medications Reviewed: Medications were reviewed in detail Lab and Diagnostics Result Diagram: 10/24/1621910/24/16219 Microbiology Microbiology CECI CULTURE BLOOD Preliminary 10/24/16-727 Organism 1 POSITIVE BLOOD CULTURE GRAM STAIN RESULT GRAM NEGATIVE RODS BC BOTTLE Isolated from Aerobic Bottle of Set Drawn DATE CALLED: 10/23/16 TIME CALLED: 44 CALLED BY: [facility] FLOOR/DOCTOR: MARISELA KNUTSON/[facility] READ BACK Y TYPE OF DRAW NURSE COLLLECT TYPE NOT SPECIFIED TIME OF POSITIVITY 0010 GRAM NEG SARAH BETH, PROBABLE E COLI ID and Susceptibilities to follow ISOLATED FROM ONE OF FOUR BOTTLES COLLECTED 10/22 X-Rays, CTs and MRIs PROCEDURE: US RENAL SONOGRAM INDICATIONS: suspected pyelonephritis TECHNIQUE: Real-time scanning was performed of the kidneys and bladder, with image documentation. COMPARISON: None. FINDINGS: Kidneys: Kidneys are normal in size. Right kidney measures 13.5 cm long; left kidney measures 13.3 cm long. Right renal cortical thickness is 1.6 cm; left renal cortical thickness is 1.4 cm. Renal cortical echotexture is normal. No hydronephrosis or nephrolithiasis. No suspicious solid mass lesions. Right renal cyst above the superior pole measuring 20 mm. Bladder: Pre-void bladder volume is 51 mL. Post-void residual is 15 mL. Pre- void images demonstrate no intraluminal masses or stones. On pre-void images, there ureteral jets are noted with color Doppler interrogation. (Of note, ureteral jets may not be detectable in up to 25% of cases due to insufficient differences in specific gravity between ureteral and bladder urine). Miscellaneous: No free pelvic fluid. IMPRESSION: 2 cm right renal cyst otherwise kidneys are grossly normal. Dictated by: Ramon Cerrato [facility] Interpreted: Pilar Raymundo MD on 10/22/2016 at 16:09 Assessment & Plan Patient is a 70 year old male with history of CAD with angioplasty, Afib, asthma , BPH, and chronic lower back pain who presents with increased urinary frequency urgency and dysuria. Admitted for UTI with possible pyelonephritis, sepsis, and afib with RVR. 1. Gram negative septicemia possible ESBL per prelim , acute. Present on admission. improving. - Pt presents with fever, leukocytosis, tachycardia. Lactic acid normal. 2nd to UTI/pyelonephritis and bacteremia. -prelim bcx ESBL - discontinue Ceftriaxone IV,switch to meropenem -isolation - Blood and urine Gram neg rods. - discontinue NS 2. Urinary tract infection, acute. Present on admission. - With possible pyelonephritis given sepsis and right flank pain. UA showed positive nitrite, small leukocyte esterase, 11-50 WBC, moderate bacteria. - abx as above - Urine cultures Gram neg rods. - Renal ultrasound pos for cyst. as above. 3. Bacteremia, present on admission. active. - Afebrile, hypertensive, normal HR, RR. - Blood cx - gram neg rods. - Continue IV Ceftriaxone for today, transition to PO tomorrow. 3. Atrial fibrillation with rapid ventricular rate. Present on admission.resolved - Pt has hx of afib on Warfarin and diltiazem. Possibly worsened secondary to infection. Received Dilt 20 mg IV and metoprolol 5 mg IV, and rate improved to low 100s. - Continue home warfarin. - Continue home diltiazem. - Metoprolol tartrate 5 mg IV q4h PRN HR >120 persisting for more than 5-10 mins. 4. Acute kidney injury. Present on admission.Resolved - Cr 1.3 on admission. Baseline Cr 1 - 1.1. Mild elevation likely secondary to sepsis and possible pyelo, although given his urinary retention, it could be post-obstructive. - Avoid nephrotoxic medications - resume home Lasix, lisinopril, allopurinol, colchicine. 5. Elevated troponin, acute. Present on admission. - Likely secondary to demand ischemia with sepsis. He also appears to have CKD Stage 2 based on past Cr, which may also play a role - Will recheck troponin - Continues to trend down. 6. Diabetes mellitus, chronic. Present on admission. - BG 162 on admission. - Humalog low dose correctional scale - Diabetic diet - A1c 7.9 - Continue home gabapentin - resume home glipizide 7. BPH, chronic - Continue home tamsulosin 8. Asthma/COPD - Albuterol neb q4h PRN 9. Coronary artery disease with prior [place] - Continue aspirin 10. GERD - Famotidine 20 mg BID 11. Hyperlipidemia - resume rosuvastatin, fenofibrate 12. Hypothyroidism - Continue Levothyroxine 13. Morbid Obesity, present on admission. - BMI 39.8 14. Chronic Hypertension, not present on admission, active. - Will continue home medication. Acetaminophen for mild pain when necessary. Bowel regimen Senna and MiraLAX scheduled and PRN. Zofran when necessary for nausea and vomiting. SubQ heparin held for now. SCDs in place. High-risk medications: Warfarin possible discharge in 1-2 days on antibiotics once sensitivity is available Amado Spear MD Oct 24, 2016 11:35
[2016-10-24] MEDS ORDERED: 0.9% Sodium Chloride 250 ML ONE (12:29)
[2016-10-24] MEDS: Meropenem Inj 1,000 MG in 0.9% Sodium Chloride 50 ML IV SCH (16:19)
--- NOTE | 2016-10-24 18:06 | NUR ---
AFIB and Heart Rate Pts. heart rhythm is AFIB and HR has been in the 119-120 range but not sustaining. Pt. denies CP, but states SOB. Pt. had a PRN albuterol by RT this morning. Pts. blood pressure was 169 systolically over 92 diastolically this evening and has been running hypertensive throughput shift. Pt. is in his room 2000 at this time eating dinner.
[2016-10-24] MEDS: Diltiazem CD 180 mg ER24 Capsule PO SCH (19:57)
[2016-10-24] MEDS: Niacin SR 500 mg ER12 Tablet PO SCH (19:57)
[2016-10-25] VITALS (11 sets, daily range): BP systolic 115–140; BP diastolic 63–104; PULSE 88–160; RESP 19–24; O2SAT 90–100
[2016-10-25] MEDS: Albuterol 2.5 mg/3 mL Inhalation Solution NEB PRN ×3 (00:23→16:13)
[2016-10-25] MEDS: Sodium Chloride LOK Flush 10 mL Syringe IVFLUSH SCH ×3 (00:30→16:16)
[2016-10-25] MEDS: Meropenem Inj 1,000 MG in 0.9% Sodium Chloride 50 ML IV SCH ×3 (01:08→16:16)
[2016-10-25] MEDS ORDERED: Diltiazem 5 mg/mL 5 mL Inj IVPUSH ONE (02:15)
[2016-10-25 03:16] LABS: BASOPHILS % (AUTO) 0.1 % (0-3); EOSINOPHILS % (AUTO) 0 % (0-5); MONOCYTES % (AUTO) 12.8 % (4-12); Mean Corpuscular Hemoglobin 30.6 pg (27.0-35.0); Mean Corpuscular Volume 91.5 fL (81-100); NEUTROPHILS % (AUTO) 81.1 % (40-74); Platelet Count 152 bil/L (150-400)
[2016-10-25 03:32] LABS: INR 1.66 ratio
[2016-10-25] MEDS: Diltiazem 125 mg/125 mL D5W IV SCH ×2 (04:02)
--- NOTE | 2016-10-25 05:42 | NUR ---
A-fib Patient in A-fib with rates 130-170s with PVCs. IV push metoprolol given per orders with no effect. Provider paged; new order for 10mg of diltiazem IV push. Heart rate improved from 170 to 140s. Patient denied chest discomfort, shortness of breath, dizziness. Provider paged with results; new order for diltiazem drip initiated. Dose titrated to 10 mg/hour; heart rate dropped to 90s. Continue close monitoring.
[2016-10-25] MEDS: Insulin LISPRO 300 Unit/3 mL Inj SUBQ SCH ×4 (08:00→22:00)
[2016-10-25] MEDS ORDERED: Sodium Chloride LOK Flush 10 mL Syringe IVFLUSH PRN (08:10)
[2016-10-25] MEDS: Potassium Chloride 20 mEq SR Tablet PO SCH (08:37)
[2016-10-25] MEDS: Magnesium Chloride SR 64 mg ER24 Tablet PO SCH (08:38)
[2016-10-25] MEDS: Polyethylene Glycol (PEG) 17 Gm Powder PO PRN (08:39)
--- NOTE | 2016-10-25 11:08 | DRSVH ---
PROCEDURE: X-RAY PICC LINE PLACEMENT BY NURSE ([id number]) INDICATIONS: prolonged antibiotics course COMPARISON: None. FINDINGS: PICC was placed by the intravenous therapy team from the right side. Fluoroscopic spot fi lm demonstrates tip of PICC in the lower SVC. IMPRESSION: Tip of PICC lies within the lower SVC. Dictated by: Yuri Cordero M.D. on 10/25/2016 at 11:01 Approved by: Yuri Cordero M.D. on 10/25/2016 at 11:02
--- NOTE | 2016-10-25 11:26 | PCM.PNMED ---
Subjective Date of Service Oct 25, 2016 Subjective Overnight Events: Patient was very tachycardic with afib with RvR HR 190. Metoprolol was given with little benefit and was started on a diltiazem drip to control HR. Today: Afebrile with no complaints of pain, nausea, vomiting, chills, headache , chest pain, shortness of breath, diarrhea, constipation, abdominal pain. Exam Vital Signs Vital Sign - Last Date Time Temp Pulse Resp B/P Pulse Ox O2 Delivery O2 Flow Rate FiO2 10/25/16 09:06 104 10/25/16 08:32 37.0 20 136/79 94 Room Air Intake and Output 10/24/16 10/24/16 10/25/16 Cumulative From/Thru 15:00 23:00 07:00 10/22/16 07:53 - 10/25/16 06:18 Intake Total 788 ml 1400 ml 55725 ml Output Total 2900 ml Balance 788 ml 1400 ml 7259 ml Intake Oral 700 ml 1400 ml 4840 ml IV Total 88 ml 5319 ml Output Urine Total 2900 ml # Voids 7 2 10 # Bowel Movements 0 Exam General: Alert, Oriented X3, Cooperative, No Acute Distress Head: Normocephalic, atraumatic. External ears normal. Eyes: PERRLA, EOMI. Anicteric sclerae. Mouth: Mouth Normal, Mucous Membranes Moist/[place] Neck: Neck supple with full range of motion. Chest & Lungs: Clear to auscultation bilaterally with no crackles, wheezes, or rhonchi. Cardiovascular: Tachycardic, irregularly irregular, Normal S1, Normal S2, No Murmurs/Rubs/Gallops Abdomen: Non-tender, Non-distended, No masses, Normoactive bowel tones, Soft Musculoskeletal: Normal Range of Motion Extremities: No cyanosis/clubbing/edema bilaterally Neurological: Grossly Neurologically Intact, Normal Speech IVs and Medications Medications Reviewed: Medications were reviewed in detail Lab and Diagnostics Result Diagram: 10/25/1625410/25/16254 Microbiology Microbiology CECI CULTURE BLOOD Preliminary 10/24/16-727 Organism 1 POSITIVE BLOOD CULTURE GRAM STAIN RESULT GRAM NEGATIVE RODS BC BOTTLE Isolated from Aerobic Bottle of Set Drawn DATE CALLED: 10/23/16 TIME CALLED: 44 CALLED BY: [facility]/DOCTOR: MARISELA KNUTSON/[facility] BC READ BACK Y TYPE OF DRAW NURSE COLLLECT TYPE NOT SPECIFIED TIME OF POSITIVITY 0010 GRAM NEG SARAH BETH, PROBABLE E COLI ID and Susceptibilities to follow ISOLATED FROM ONE OF FOUR BOTTLES COLLECTED 10/22 X-Rays, CTs and MRIs PROCEDURE: US RENAL SONOGRAM INDICATIONS: suspected pyelonephritis TECHNIQUE: Real-time scanning was performed of the kidneys and bladder, with image documentation. COMPARISON: None. FINDINGS: Kidneys: Kidneys are normal in size. Right kidney measures 13.5 cm long; left kidney measures 13.3 cm long. Right renal cortical thickness is 1.6 cm; left renal cortical thickness is 1.4 cm. Renal cortical echotexture is normal. No hydronephrosis or nephrolithiasis. No suspicious solid mass lesions. Right renal cyst above the superior pole measuring 20 mm. Bladder: Pre-void bladder volume is 51 mL. Post-void residual is 15 mL. Pre- void images demonstrate no intraluminal masses or stones. On pre-void images, there ureteral jets are noted with color Doppler interrogation. (Of note, ureteral jets may not be detectable in up to 25% of cases due to insufficient differences in specific gravity between ureteral and bladder urine). Miscellaneous: No free pelvic fluid. IMPRESSION: 2 cm right renal cyst otherwise kidneys are grossly normal. Dictated by: Ramon JOHNSON Interpreted: Pilar Raymundo MD on 10/22/2016 at 16:09 Assessment & Plan Patient is a 70 year old male with history of CAD with angioplasty, Afib, asthma , BPH, and chronic lower back pain who presents with increased urinary frequency urgency and dysuria. Admitted for UTI with possible pyelonephritis, sepsis, and afib with RVR. 1. ESBL E .coli septicemia , acute. Present on admission. improving. - Pt presents with fever, leukocytosis, tachycardia. Lactic acid normal. 2nd to UTI/pyelonephritis and bacteremia. - urine and blood culture growing ESBL - On meropenem - Isolation - Plan for PICC placement today. will reeat bcx and discharge tomorrow on ertapenem 2. Urinary tract infection, acute. Present on admission. Active and treated. - With possible pyelonephritis given sepsis and right flank pain. UA showed positive nitrite, small leukocyte esterase, 11-50 WBC, moderate bacteria. - Abx as above - Urine cultures ESBL E coli - Renal ultrasound pos for cyst. as above. 3. Bacteremia, present on admission. active improving. - Afebrile, hypertensive, normal HR, RR. - Blood cx - gram neg rods - ESBL. 4. Atrial fibrillation with rapid ventricular rate. Present on admission. Active. - Pt has hx of afib on Warfarin and diltiazem. Possibly worsened secondary to infection. Received Dilt 20 mg IV and metoprolol 5 mg IV, and rate improved to low 100s. - Continue home warfarin. - Continue home diltiazem. - On Dilt ggt. Will transition to PO. 5. Acute kidney injury. Present on admission.Resolved - Cr 1.3 on admission. Baseline Cr 1 - 1.1. Mild elevation likely secondary to sepsis and possible pyelo, although given his urinary retention, it could be post-obstructive. - Avoid nephrotoxic medications - Resume home Lasix, lisinopril, allopurinol, colchicine. 6. Elevated troponin, acute. Present on admission. - Likely secondary to demand ischemia with sepsis. He also appears to have CKD Stage 2 based on past Cr, which may also play a role - Will recheck troponin - Continues to trend down. 7. Diabetes mellitus, chronic. Present on admission. - BG 162 on admission. - Humalog low dose correctional scale - Diabetic diet - A1c 7.9 - Continue home gabapentin - resume home glipizide 8. BPH, chronic - Continue home tamsulosin 9. Asthma/COPD - Albuterol neb q4h PRN 10. Coronary artery disease with prior [place] - Continue aspirin 11. GERD - Famotidine 20 mg BID 12. Hyperlipidemia - resume rosuvastatin, fenofibrate 13. Hypothyroidism - Continue Levothyroxine 14. Morbid Obesity, present on admission. - BMI 39.8 15. Chronic Hypertension, not present on admission, active. - Will continue home medication. Acetaminophen for mild pain when necessary. Bowel regimen Senna and MiraLAX scheduled and PRN. Zofran when necessary for nausea and vomiting. SubQ heparin held for now. SCDs in place. High-risk medications: Warfarin Disposition: possible discharge in tomorrow with PICC and IV abx. Pain Evaluation: Adequate Pain Control Attending Statement The patient was seen and examined together with Dr. Herrera on 10/25/2016 and I agree with the history, exam and plan as outlined in the note above. JESSICA HERRERA DO Oct 25, 2016 11:26 Amado Spear MD Oct 25, 2016 16:12
--- NOTE | 2016-10-25 14:01 | NUR ---
[facility] signed
--- NOTE | 2016-10-25 14:36 | PCM.PHAPRO ---
Progress Date of Service: Oct 25, 2016 Warfarin dosing 1-Oct 2-Oct 3-Oct 4-Oct 1.85 1.59 1.66 1.66 5mg 5mg 5mg 5mg Royal Mota Oct 25, 2016 14:36
[2016-10-25] MEDS ORDERED: Magnesium Sulf 2 Gm/50mL Water 2 GM in IV Premix 1 EACH IV ONE (17:30)
--- NOTE | 2016-10-25 18:45 | NUR ---
Heart Rate/Magnesium Pt. was DC'D off of diltiazem drip by MD shoemaker. Pt was given PO once 90 mg of diltiazem prior to discontinuing diltiazem drip. Pt. denies any CP or SOB, Afib with HR in the 100's-120s. Pts. magnesium was low 5.1 and is getting magnesium IV once at this time. Pt is in bed resting comfortably.
[2016-10-25] MEDS: Niacin SR 500 mg ER12 Tablet PO SCH (19:39)
[2016-10-25] MEDS: Diltiazem CD 180 mg ER24 Capsule PO SCH (19:40)
[2016-10-26] VITALS (12 sets, daily range): BP systolic 124–152; BP diastolic 69–105; PULSE 75–144; RESP 16–34; O2SAT 93–98
[2016-10-26] MEDS: Meropenem Inj 1,000 MG in 0.9% Sodium Chloride 50 ML IV SCH ×3 (00:58→16:18)
[2016-10-26] MEDS: Sodium Chloride LOK Flush 10 mL Syringe IVFLUSH SCH ×3 (00:58→16:18)
[2016-10-26] MEDS: Diltiazem 125 mg/125 mL D5W IV SCH ×2 (03:45)
[2016-10-26 05:00] LABS: BASOPHILS % (AUTO) 0.2 % (0-3); EOSINOPHILS % (AUTO) 0.1 % (0-5); MONOCYTES % (AUTO) 18.2 % (4-12); Mean Corpuscular Hemoglobin 30.6 pg (27.0-35.0); Mean Corpuscular Volume 89.9 fL (81-100); Platelet Count 159 bil/L (150-400)
[2016-10-26 05:21] LABS: INR 1.78 ratio
--- NOTE | 2016-10-26 05:58 | NUR ---
Tele Patient continues to be in a-fib with rates 120-150 and frequent PVCs. Denies chest discomfort, dizziness, nausea. Continue to monitor.
[2016-10-26] MEDS: Albuterol 2.5 mg/3 mL Inhalation Solution NEB PRN ×3 (07:18→19:38)
[2016-10-26] MEDS: Potassium Chloride 20 mEq SR Tablet PO SCH (07:38)
[2016-10-26] MEDS: Magnesium Chloride SR 64 mg ER24 Tablet PO SCH (07:39)
[2016-10-26] MEDS: Insulin LISPRO 300 Unit/3 mL Inj SUBQ SCH ×4 (07:45→22:00)
[2016-10-26] MEDS ORDERED: Diltiazem 5 mg/mL 5 mL Inj IVPUSH ONE (07:55)
[2016-10-26] MEDS: Diltiazem CD 240 mg ER24 Capsule PO SCH (08:01)
[2016-10-26] MEDS ORDERED: 0.9% Sodium Chloride 250 ML ONE (08:11)
--- NOTE | 2016-10-26 10:20 | DRSVH ---
PROCEDURE: X-RAY CHEST ONE VIEW, PORTABLE ([id number]) INDICATIONS: 70 year-old male with dyspnea. TECHNIQUE: One view of the chest was acquired. COMPARISON: [facility], CR, XR CHEST 1VW (PORTABLE), 10/22/2016, 8:45. [facility], CR, XR CHEST 2VW, 08/28/2016, 12:04. [facility], CR, XR CHEST 2VW, 12/07/2015, 19 :44. FINDINGS: Surgical changes and devices: Right supraclavicular surgical clips are again noted. New right PICC is present, with tip in expected position. Lungs and pleura: No pleural effusions or pneumothorax. Lungs are clear. Mediastinum: Mediastinal contours appear normal. Heart size is normal. Bones and chest wall: No suspicious bony lesions. Overlying soft tissues appear unremarkable. IMPRESSION: No acute cardiopulmonary disease. Dictated by: Ortega Shoemaker M.D. on 10/26/2016 at 10:18 Approved by: Ortega Shoemaker M.D. on 10/26/2016 at 10:18
--- NOTE | 2016-10-26 11:24 | PCM.PNMED ---
Subjective Date of Service Oct 26, 2016 Subjective Continues to have fever. Continues to tachycardia/atrial fibrillation with RVR. PICC line placed. Leukocytosis improving. Exam Vital Signs Vital Sign - Last Date Time Temp Pulse Resp B/P Pulse Ox O2 Delivery O2 Flow Rate FiO2 10/26/16 09:52 135 10/26/16 07:31 38.0 24 148/105 96 Room Air Intake and Output 10/25/16 10/25/16 10/26/16 Cumulative From/Thru 15:00 23:00 07:00 10/22/16 07:53 - 10/26/16 04:57 Intake Total 753 ml 608 ml 00440 ml Output Total 125 ml 200 ml 3225 ml Balance 628 ml 408 ml 8295 ml Intake Oral 600 ml 400 ml 5840 ml IV Total 153 ml 208 ml 5680 ml Output Urine Total 125 ml 200 ml 3225 ml # Voids 5 4 19 # Bowel Movements 2 0 2 Exam General: Alert, Oriented X3, Cooperative, No Acute Distress Head: Normocephalic, atraumatic. External ears normal. Eyes: PERRLA, EOMI. Anicteric sclerae. Mouth: Mouth Normal, Mucous Membranes Moist/[place] Neck: Neck supple with full range of motion. Chest & Lungs: Clear to auscultation bilaterally with no crackles, wheezes, or rhonchi.RUE PICC in place Cardiovascular: Tachycardic, irregularly irregular, Normal S1, Normal S2, No Murmurs/Rubs/Gallops Abdomen: Non-tender, Non-distended, No masses, Normoactive bowel tones, Soft Musculoskeletal: Normal Range of Motion Extremities: No cyanosis/clubbing/edema bilaterally Neurological: Grossly Neurologically Intact, Normal Speech IVs and Medications Medications Reviewed: Medications were reviewed in detail Lab and Diagnostics Result Diagram: 10/26/1644410/26/16444 Microbiology Microbiology CECI CULTURE BLOOD Preliminary 10/24/16-727 Organism 1 POSITIVE BLOOD CULTURE GRAM STAIN RESULT GRAM NEGATIVE RODS BC BOTTLE Isolated from Aerobic Bottle of Set Drawn DATE CALLED: 10/23/16 TIME CALLED: 44 CALLED BY: [facility]/DOCTOR: MARISELA KNUTSON/CARMEN BC READ BACK Y TYPE OF DRAW NURSE COLLLECT TYPE NOT SPECIFIED TIME OF POSITIVITY 0010 GRAM NEG SARAH BETH, PROBABLE E COLI ID and Susceptibilities to follow ISOLATED FROM ONE OF FOUR BOTTLES COLLECTED 10/22 X-Rays, CTs and MRIs PROCEDURE: US RENAL SONOGRAM INDICATIONS: suspected pyelonephritis TECHNIQUE: Real-time scanning was performed of the kidneys and bladder, with image documentation. COMPARISON: None. FINDINGS: Kidneys: Kidneys are normal in size. Right kidney measures 13.5 cm long; left kidney measures 13.3 cm long. Right renal cortical thickness is 1.6 cm; left renal cortical thickness is 1.4 cm. Renal cortical echotexture is normal. No hydronephrosis or nephrolithiasis. No suspicious solid mass lesions. Right renal cyst above the superior pole measuring 20 mm. Bladder: Pre-void bladder volume is 51 mL. Post-void residual is 15 mL. Pre- void images demonstrate no intraluminal masses or stones. On pre-void images, there ureteral jets are noted with color Doppler interrogation. (Of note, ureteral jets may not be detectable in up to 25% of cases due to insufficient differences in specific gravity between ureteral and bladder urine). Miscellaneous: No free pelvic fluid. IMPRESSION: 2 cm right renal cyst otherwise kidneys are grossly normal. Dictated by: Ramon Cerrato Fabiana Interpreted: Pilar Raymundo MD on 10/22/2016 at 16:09 Assessment & Plan Patient is a 70 year old male with history of CAD with angioplasty, Afib, asthma , BPH, and chronic lower back pain who presents with increased urinary frequency urgency and dysuria. Admitted for UTI with possible pyelonephritis, sepsis, and afib with RVR. 1. ESBL E .coli septicemia , acute. Present on admission. improving. - Pt presents with fever, leukocytosis, tachycardia. Lactic acid normal. 2nd to UTI/pyelonephritis and bacteremia. - urine and blood culture growing ESBL sensitive to meropenem and ertapenem - On meropenem 1 g every 8 - Isolation -Patient continues to have fever.no other source,cxr done today negative .will consider repeating ultrasound to rule out obstruction if continues to have fever - PICC placed. repeat bcx sent 10/25.possible discharge tomorrow on ertapenem to complete 2 weeks if afebrile for 24 hours and yesterday HR led 2. Urinary tract infection, acute. Present on admission. Active and treated. - With possible pyelonephritis given sepsis and right flank pain. UA showed positive nitrite, small leukocyte esterase, 11-50 WBC, moderate bacteria. - Abx as above - Urine cultures ESBL E coli - Renal ultrasound pos for cyst. as above. 3. Bacteremia, present on admission. active improving. - Blood cx - gram neg rods - ESBL. 4. Atrial fibrillation with rapid ventricular rate. Present on admission. Active. - Pt has hx of afib on Warfarin and diltiazem. Possibly worsened secondary to infection. Received Dilt 20 mg IV and metoprolol 5 mg IV, and rate improved to low 100s. - Continue home warfarin. - Continue home diltiazem. 240 mg and 180 mg - Off Dilt ggt. 5. Acute kidney injury. Present on admission.Resolved - Cr 1.3 on admission. Baseline Cr 1 - 1.1. Mild elevation likely secondary to sepsis and possible pyelo, although given his urinary retention, it could be post-obstructive. - Avoid nephrotoxic medications - Resume home Lasix, lisinopril, allopurinol, colchicine. 6. Elevated troponin, acute. Present on admission. - Likely secondary to demand ischemia with sepsis. He also appears to have CKD Stage 2 based on past Cr, which may also play a role - trended down. 7. Diabetes mellitus, chronic. Present on admission. - BG 162 on admission. - Humalog low dose correctional scale - Diabetic diet - A1c 7.9 - Continue home gabapentin - resume home glipizide 8. BPH, chronic - Continue home tamsulosin 9. Asthma/COPD - Albuterol neb q4h PRN 10. Coronary artery disease with prior [place] - Continue aspirin 11. GERD - Famotidine 20 mg BID 12. Hyperlipidemia - resume rosuvastatin, fenofibrate 13. Hypothyroidism - Continue Levothyroxine 14. Obesity, present on admission. - BMI 39.8 15. Chronic Hypertension, not present on admission, active. - Will continue home medication. Acetaminophen for mild pain when necessary. Bowel regimen Senna and MiraLAX scheduled and PRN. Zofran when necessary for nausea and vomiting. SubQ heparin held for now. SCDs in place. High-risk medications: Warfarin Disposition: possible discharge in tomorrow with PICC and IV abx if afebrile for 24h and HR controlled. Amado Spear MD Oct 26, 2016 11:24
--- NOTE | 2016-10-26 14:03 | NUR ---
Social Work: Continue Discharge Planning Data & Assessment: Litigation Coordinator spoke with patient's spouse and notified her that physician would order that patient discharge home with IV Abx. SW gave patient's a choice of providers and she was in agreement with patient being referred to [facility] for home IV. SW gave [facility] access to the patient's chart and spoke with Chelsea (pharmacist @ [facility]) and notified her of the referral. 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 SW will continue to follow patient for discharge planning needs. Plan: Patient is like to discharge home with IV Abx. provided by [facility]. Patient martha transported home via POV. SW will continue to follow. Faby Garcia LMSW, MARY
--- NOTE | 2016-10-26 14:16 | PCM.PHAPRO ---
Progress Date of Service: Oct 26, 2016 Warfarin dosing A/ Today's INR is 1.78. Goal is 2-3. Patient is subtherapeutic. P/ Continue with home dose of 5mg of warfarin today Royal Mota Oct 26, 2016 14:16
--- NOTE | 2016-10-26 18:34 | NUR ---
Temp/Heart Rate Pt. this morning has a temp. of 102 degrees Fahrenheit. Pt. req. Tylenol, noon temp. was 99.1 degrees Fahrenheit and afternoon temp was 98.8 degrees Fahrenheit. Pt. has no c/o pain, SOB, or CP. Pts. heart rate has been in the 80-low 100s at rest and sometimes up to 120 or higher with activity.
[2016-10-26] MEDS: Niacin SR 500 mg ER12 Tablet PO SCH (20:43)
[2016-10-26] MEDS: Diltiazem CD 180 mg ER24 Capsule PO SCH (20:44)
[2016-10-27] VITALS (13 sets, daily range): BP systolic 128–145; BP diastolic 51–97; PULSE 62–135; RESP 16–23; O2SAT 93–98
[2016-10-27] MEDS: Sodium Chloride LOK Flush 10 mL Syringe IVFLUSH SCH ×4 (00:41→22:24)
[2016-10-27] MEDS: Meropenem Inj 1,000 MG in 0.9% Sodium Chloride 50 ML IV SCH ×3 (00:42→18:12)
[2016-10-27] MEDS: Albuterol 2.5 mg/3 mL Inhalation Solution NEB PRN ×2 (02:25→08:25)
[2016-10-27] MEDS: Diltiazem 125 mg/125 mL D5W IV SCH ×4 (03:45→22:24)
--- NOTE | 2016-10-27 06:05 | NUR ---
Tele/Temp Patient remains in a-fib with rates 120-140s, frequent PVCs. Afebrile overnight. Patient expresses eagerness to go home today. Continue to monitor.
[2016-10-27 06:26] LABS: INR 2.04 ratio
[2016-10-27] MEDS: Insulin LISPRO 300 Unit/3 mL Inj SUBQ SCH ×4 (08:00→20:54)
[2016-10-27] MEDS: Magnesium Chloride SR 64 mg ER24 Tablet PO SCH (08:16)
[2016-10-27] MEDS: Potassium Chloride 20 mEq SR Tablet PO SCH (08:17)
[2016-10-27] MEDS: Diltiazem CD 240 mg ER24 Capsule PO SCH (08:17)
[2016-10-27] MEDS ORDERED: Magnesium Sulf 2 Gm/50mL Water 2 GM in IV Premix 1 EACH IV ONE (09:05)
[2016-10-27] MEDS: Albuterol-Ipratropium 3 mL Inhalation Solution NEB SCH ×4 (09:50→19:47)
--- NOTE | 2016-10-27 10:47 | NUR ---
Social Work Note: Readiness for Discharge Data& Assessment: Per MD request, SW faxed orders for daily 1g ertapenem for ten days to [facility] for estimated cost. SW confirmed with Sharif from [facility] that the cost would $287 for one week and a ten day course could cost the pt up to $400. SW met with pt at bedside to confirm he is agreeable to this cost. Pt confirmed he is agreeable to the cost for his home IV abx, his who is an RN is agreeable to learn and administer the IV abx. Pt denies any other needs at this time. SW to continue to follow if any needs arise. Plan: Anticipated discharge home via POV with home IV abx through [facility]. LUZ MARIA confirmed cost and discharge plan with pt and MD, pt denies any other needs. No other discharge needs identified. SW to continue to follow if any needs arise. ATTILA Humphreys
--- NOTE | 2016-10-27 18:36 | NUR ---
Blood Glucose His blood glucose before meals were: 121, 118, and 126. No insulin sliding scale coverage was needed. He is pleased with his blood sugars today. Care continues.
--- NOTE | 2016-10-27 19:41 | PCM.PNMED ---
Subjective Date of Service Oct 27, 2016 Subjective Hospital Day 6 Overnight: Patient remains in a-fib with rates 120-140s, frequent PVCs. Afebrile on CPAP with no acute events overnight overnight. Today: Patient denies chest discomfort palpitations or shortness of breath with getting to the bathroom, however he has not been seen by PT which will be ordered for discharge planning. He states that since he was young he has had afib with a fast heart rate. He states that he has a cardiology appointment with a Zio patch in two weeks. He understands that he should keep this appointment. He states that he has a history of COPD likely due to 25pack year history of smoking, was formerly on Combivent but states that he had to stop Dulera due to insurance. He is regularly placed on Exam Vital Signs Vital Sign - Last Date Time Temp Pulse Resp B/P Pulse Ox O2 Delivery O2 Flow Rate FiO2 10/27/16 02:52 37.0 86 23 143/61 94 CPAP Intake and Output 10/26/16 10/26/16 10/27/16 Cumulative From/Thru 15:00 23:00 07:00 10/22/16 07:53 - 10/27/16 05:32 Intake Total 1199 ml 199 ml 93097 ml Output Total 3225 ml Balance 1199 ml 199 ml 9693 ml Intake Oral 1040 ml 60 ml 6940 ml IV Total 159 ml 139 ml 5978 ml Output Urine Total 3225 ml # Voids 4 3 26 # Bowel Movements 1 1 4 Exam General: Alert, Oriented X3, Cooperative, No Acute Distress Head: Normocephalic, atraumatic. External ears normal. Eyes: PERRLA, EOMI. Anicteric sclerae. Mouth: Mouth Normal, Mucous Membranes Moist/[place] Neck: Neck supple with full range of motion. Chest & Lungs: decreased breath sounds on auscultation bilaterally with an intermittent random mild wheeze throughout no crackles or rhonchi. Cardiovascular: Tachycardic, irregularly irregular, Normal S1, Normal S2, No Murmurs/Rubs/Gallops Abdomen: Non-tender, Non-distended, No masses, Normoactive bowel tones, Soft : No irby in place Musculoskeletal: Normal Range of Motion Extremities: No cyanosis/clubbing/edema bilaterally Neurological: Grossly Neurologically Intact, Normal Speech Psych: normal mood and affect Lab and Diagnostics Result Diagram: 3/5/17 0445 10/26/16 044 Microbiology Microbiology CECI CULTURE BLOOD Preliminary 10/24/16-727 Organism 1 POSITIVE BLOOD CULTURE GRAM STAIN RESULT GRAM NEGATIVE RODS BC BOTTLE Isolated from Aerobic Bottle of Set Drawn DATE CALLED: 10/23/16 TIME CALLED: 44 CALLED BY: [facility]/DOCTOR: MARISELA KNUTSON/CARMEN BC READ BACK Y TYPE OF DRAW NURSE COLLLECT TYPE NOT SPECIFIED TIME OF POSITIVITY 0010 GRAM NEG SARAH BETH, PROBABLE E COLI ID and Susceptibilities to follow ISOLATED FROM ONE OF FOUR BOTTLES COLLECTED 10/22 X-Rays, CTs and MRIs PROCEDURE: US RENAL SONOGRAM INDICATIONS: suspected pyelonephritis TECHNIQUE: Real-time scanning was performed of the kidneys and bladder, with image documentation. COMPARISON: None. FINDINGS: Kidneys: Kidneys are normal in size. Right kidney measures 13.5 cm long; left kidney measures 13.3 cm long. Right renal cortical thickness is 1.6 cm; left renal cortical thickness is 1.4 cm. Renal cortical echotexture is normal. No hydronephrosis or nephrolithiasis. No suspicious solid mass lesions. Right renal cyst above the superior pole measuring 20 mm. Bladder: Pre-void bladder volume is 51 mL. Post-void residual is 15 mL. Pre- void images demonstrate no intraluminal masses or stones. On pre-void images, there ureteral jets are noted with color Doppler interrogation. (Of note, ureteral jets may not be detectable in up to 25% of cases due to insufficient differences in specific gravity between ureteral and bladder urine). Miscellaneous: No free pelvic fluid. IMPRESSION: 2 cm right renal cyst otherwise kidneys are grossly normal. Dictated by: Ramon Cerrato [facility] Interpreted: Pilar Raymundo MD on 10/22/2016 at 16:09 Assessment & Plan Patient is a 70 year old male with history of CAD with angioplasty, Afib, asthma , BPH, and chronic lower back pain who presents with increased urinary frequency urgency and dysuria. Admitted for UTI with possible pyelonephritis, sepsis, and afib with RVR. 1. Sepsis secondary to ESBL E .coli pyelonephritis, acute. Present on admission. improving. - Pt presents with fever, leukocytosis, tachycardia. Lactic acid normal. 2nd to UTI/pyelonephritis and bacteremia. - urine and blood culture growing ESBL sensitive to meropenem and ertapenem - On meropenem 1 g every 8, covert to Ertapenam 1g q day on 10/28 in preparation for discharge - Isolation - Patient continues to have fever. no other source likely - PICC placed. repeat bcx sent 10/25. possible discharge tomorrow on ertapenem to complete 2 weeks for bacteremia to be DC on 11/07 if afebrile for 24 hours 2. Pyelonephritis, acute. Present on admission. Active and treated. - With possible pyelonephritis given sepsis and right flank pain. UA showed positive nitrite, small leukocyte esterase, 11-50 WBC, moderate bacteria. - Abx as above - Urine cultures ESBL E coli - Renal ultrasound pos for cyst. as above. 3. Bacteremia, present on admission. active improving. - Blood cx - gram neg rods - ESBL. 4. Atrial fibrillation with rapid ventricular rate. Present on admission. Active. - Pt has hx of afib on Warfarin and diltiazem. Possibly worsened secondary to infection. Received Dilt 20 mg IV and metoprolol 5 mg IV, and rate improved to low 100s. - Continue home warfarin with INR above 2 for first time since admission - Continue home diltiazem. 240 mg in morning and 180 mg at night - Patient was discontinued from beta erica due to shortness of breath associated to asthma 5. Acute kidney injury. Present on admission.Resolved - Cr 1.3 on admission. Baseline Cr 1 - 1.1. Mild elevation likely secondary to sepsis and possible pyelo, although given his urinary retention, it could be post-obstructive. - Avoid nephrotoxic medications - Resume home Lasix, lisinopril, allopurinol, colchicine. 6. Elevated troponin, acute. Present on admission. - Likely secondary to demand ischemia with sepsis. He also appears to have CKD Stage 2 based on past Cr, which may also play a role - trended down. 7. Diabetes mellitus, chronic. Present on admission. - BG 162 on admission. - Humalog low dose correctional scale - Diabetic diet - A1c 7.9 - Continue home gabapentin - resume home glipizide 8. BPH, chronic - Continue home tamsulosin 9. Asthma/COPD - Albuterol neb q4h PRN - Duoneb q4h scheduled - start QVAR steroid inhaler 10/27 to replace prior Dulera 10. Coronary artery disease with prior [place] - Continue aspirin 11. GERD - Famotidine 20 mg BID 12. Hyperlipidemia - resume rosuvastatin, fenofibrate 13. Hypothyroidism - Continue Levothyroxine 14. Obesity, present on admission. - BMI 39.8 15. Chronic Hypertension, not present on admission, active. - Will continue home medication. Acetaminophen for mild pain when necessary. Bowel regimen Senna and MiraLAX scheduled and PRN. Zofran when necessary for nausea and vomiting. SubQ heparin held for now. SCDs in place. High-risk medications: Warfarin Disposition: possible discharge in tomorrow with PICC and IV abx if afebrile for 24h and HR controlled. Pain Evaluation: Adequate Pain Control VTE Prophylaxis: Theraputic Anticoag with Warfarin VTE Mechanical Devices: Intermittant Pneumatic CD Resuscitation Status: CPR: Attempt Resuscitation Attending Statement The patient was seen and examined together with Dr. Velez on 10/27/2016 and I agree with the history, exam and plan as outlined in the note above. . Virgilio Velez DO Oct 27, 2016 07:00 Royal Amor MD Oct 28, 2016 07:31
[2016-10-27] MEDS: Diltiazem CD 180 mg ER24 Capsule PO SCH (19:45)
[2016-10-27] MEDS: Niacin SR 500 mg ER12 Tablet PO SCH (19:46)
[2016-10-27] MEDS: Fluticasone 250 mCg Inhaler INHALATION SCH (20:54)
[2016-10-28] VITALS (8 sets, daily range): BP systolic 135–146; BP diastolic 71–87; PULSE 76–142; RESP 16–20; O2SAT 93–95
[2016-10-28] MEDS: Albuterol-Ipratropium 3 mL Inhalation Solution NEB SCH ×3 (00:08→07:57)
[2016-10-28] MEDS ORDERED: 0.9% Sodium Chloride 250 ML ONE (00:25)
[2016-10-28] MEDS: Meropenem Inj 1,000 MG in 0.9% Sodium Chloride 50 ML IV SCH (00:29)
[2016-10-28 05:36] LABS: BASOPHILS % (AUTO) 0.4 % (0-3); EOSINOPHILS % (AUTO) 2.2 % (0-5); MONOCYTES % (AUTO) 11.2 % (4-12); Mean Corpuscular Hemoglobin 29.8 pg (27.0-35.0); Mean Corpuscular Volume 91.2 fL (81-100); NEUTROPHILS % (AUTO) 65.9 % (40-74); Platelet Count 200 bil/L (150-400)
[2016-10-28 06:06] LABS: Magnesium 1.9 mg/dL (1.6-2.6); Phosphorus 2.6 mg/dL (2.5-4.9)
[2016-10-28 06:07] LABS: INR 2.87 ratio
[2016-10-28] MEDS: Insulin LISPRO 300 Unit/3 mL Inj SUBQ SCH (08:00)
[2016-10-28] MEDS: Diltiazem CD 240 mg ER24 Capsule PO SCH (08:30)
[2016-10-28] MEDS: Sodium Chloride LOK Flush 10 mL Syringe IVFLUSH SCH (08:30)
[2016-10-28] MEDS ORDERED: Ertapenem Inj 1,000 MG in 0.9% Sodium Chloride 50 ML IV SCH (08:30)
[2016-10-28] MEDS ORDERED: Potassium Chloride 20 mEq SR Tablet PO ONE (08:40)
[2016-10-28] MEDS: Fluticasone 250 mCg Inhaler INHALATION SCH (09:56)
[2016-10-28] MEDS: Magnesium Chloride SR 64 mg ER24 Tablet PO SCH (09:57)
[2016-10-28] MEDS: Potassium Chloride 20 mEq SR Tablet PO SCH (09:58)
--- NOTE | 2016-10-28 10:52 | PCM.DIMED ---
Virgilio Velez DO 10/28/16 1052: Discharge Instructions Date of Service Oct 28, 2016 Dates of Hospitalization Oct 22, 2016 at 12:00 Discharge Diagnosis Discharge Diagnosis 1. Sepsis secondary to ESBL E .coli pyelonephritis 2. Pyelonephritis 3. Bacteremia 4. Atrial fibrillation with rapid ventricular rate 5. Acute kidney injury 6. Mild Normocytic Anemia 7. Diabetes mellitus 8. BPH, chronic 9. Asthma/COPD 10. Coronary artery disease with prior [place] 11. GERD 12. Hyperlipidemia 13. Hypothyroidism 14. Obesity 15. Chronic Hypertension Medication Instructions For your recent blood and kidney infection arrangements have been made to receive home infusions of antibiotic Ertapenam 1g through a PICC line every day starting in the hospital on 10/28 through 11/07 to complete a two week course of appropriate antibiotic therapy. You will also be started on a probiotic to help replace your intestinal selena which is called [employer] and is a [place] probiotic to be taken twice daily for 1 month. For your atrial fibrillation we will continue your whole home diltiazem dosing and request that he follow up with your wood machinist apprentice with the appointment that you have reported which is scheduled for a few weeks. For your anticoagulation on warfarin we would like for you to continue your regular home dosing to follow up with the Coumadin clinic within the next few days before October 31 to confirm that your properly anticoagulated on your current warfarin dosing. For your COPD/asthma you were previously only on an albuterol rescue inhaler. To this we will add a beclomethasone inhaler as well as an ipratropium inhaler. Review of cheap pharmacy prices showed the best prices at either [facility] or [facility] however he may want to check prior to purchase. Please continue to take these inhalers as directed and informed your primary care physician that these medications were started at this hospitalization and that more aggressive treatment of your COPD/asthma may be necessary to continue in the future. Long- acting bronchodilators might be indicated for your COPD however due your asthma these medications will be held and consideration for starting should be placed on your primary care physician. We will continue all your regular home medications including furosemide, lisinopril, allopurinol, colchicine, glipizide, gabapentin, tamsulosin, levothyroxin, rosuvastatin, fenofibrate, and famotidine according to your current outpatient dosing. Test Results CECI CULTURE BLOOD Final Organism 1 1. E. COLI ESBL ADMISSIONS SUPERVISOR * ERTAPENEM sensitive Diet Heart Healthy, Diabetic Activity Limited until seen by PCP Call your provider Fever or Chills, Shortness of breath, Bleeding, Chest pain, Vomitting, Excessive diarrhea, Weakness (unilateral) Patient Instructions For your recent blood and kidney infection arrangements have been made to receive home infusions of antibiotic Ertapenam 1g through a PICC line every day starting in the hospital on 10/28 through 11/07 to complete a two week course of appropriate antibiotic therapy. A company has been contracted [employer] to provide training to your who is registered nurse to complete these infusions at home. The [facility] team should make a home visit within the next day. You will also be started on a probiotic to help replace your intestinal selena which is called [employer] and is a [place] probiotic to be taken twice daily for 1 month. For your atrial fibrillation we will continue your whole home diltiazem dosing and request that he follow up with your wood machinist apprentice with the appointment that you have reported which is scheduled for a few weeks. For your anticoagulation on warfarin we would like for you to follow up with the Coumadin clinic within the next few days before October 31 to confirm that your properly anticoagulated on your current warfarin dosing. For your COPD/asthma you were previously only on an albuterol rescue inhaler. To this we will add a beclomethasone inhaler as well as an ipratropium inhaler and a formoterol inhaler. Please continue to take these inhalers as directed and informed your primary care physician that these medications were started at this hospitalization and that more aggressive treatment of your COPD/asthma may be necessary to continue in the future. We will continue all your regular home medications including furosemide, lisinopril, allopurinol, colchicine, glipizide, gabapentin, tamsulosin, levothyroxin, rosuvastatin, fenofibrate, and famotidine according to your current outpatient dosing. Follow-up plan As discussed above in your patient instructions and medication instructions plan. Please contact the [employer] company upon your arrival home so that you may guarantee no delay in your patient instructions on antibiotic infusions. Please follow up with your regular Coumadin clinic within the next few days before October 31 for evaluation of your warfarin levels. Please follow-up with your primary care physician within the next week for evaluation of your new medications as well as overall health. Please follow-up with your regular wood machinist apprentice for evaluation of your atrial fibrillation at your scheduled appointment in 2 weeks. Follow-up Provider: Triston North MD Follow-up with PCP in: 1 week Mid-level Provider (F9): Jonathan Beatty PA-C Follow-up with Mid-level in: 2 weeks Additional Information Please follow up with your regular INR check throught the [facility] 2 days on October 30, 2016 Royal Amor MD 10/30/16 0724: Discharge Instructions Attending's Statement The patient was seen and examined together with Dr. Velez on 10/28/2016 and I agree with the history, exam and plan as outlined in the note above. . Virgilio Velez DO Oct 28, 2016 10:52 Royal Amor MD Oct 30, 2016 07:24
[2016-10-28] MEDS ORDERED: INVANZ1I IV (11:10)
[2016-10-28] MEDS ORDERED: BECL8.7A6 INHALATION (11:10)
[2016-10-28] MEDS ORDERED: SACC250C PO (11:10)
[2016-10-28] MEDS ORDERED: ATRINH INH (11:10)
--- NOTE | 2016-10-28 12:00 | NUR ---
Discharge He was discharged about 1200 and was taken via wheelchair by the BROOM WORKER to the hospital entrance where his picked him up to go home. His PICC line was left in for home IV antibiotics. He was given discharge paperwork and it was discussed with him (MD/nurse instructions, prescriptions, care notes). He thanked staff for all their care.
--- NOTE | 2016-10-28 13:25 | NUR ---
Social Work Note: Discharge Data& Assessment: EMR reviewed. Per pt is medically ready for discharge home via POV with [facility] for IV abx at home. Royal Lopez is a 70 year old male admitted on 10/22/2016 for pyelonephritis and elevated troponin. Per pt is medically improved and ready to discharge. Pt comfortable with administering IV abx at home. 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 Pt transporting pt home. SW notified Sharif from [facility] of pt discharge, with start date tomorrow 10/29/2016 as pt received his abx dosage for today per EMR. All updated and agreeable to plan. No other discharge needs identified. Plan: Per pt is medically ready for discharge home via POV with [facility] for IV abx at home. All updated and agreeable to plan. No other discharge needs identified. ATTILA Humphreys
--- NOTE | 2016-10-28 17:04 | PCM.PNMED ---
Subjective Date of Service Oct 28, 2016 Subjective overnight: no acute events today: The patient feels better and is ready to go home. He understands the plan for his antibiotics. He will be seen in the coumadin clinic in 2 days for an INR check. He will follow up with his PCP in 1 week and his criminal lawyer in 2 weeks. Exam Vital Signs Vital Sign - Last Date Time Temp Pulse Resp B/P Pulse Ox O2 Delivery O2 Flow Rate FiO2 10/28/16 04:03 84 16 94 Room Air 10/28/16 03:50 36.8 135/82 Intake and Output 10/27/16 10/27/16 10/28/16 Cumulative From/Thru 15:00 23:00 07:00 10/22/16 07:53 - 10/28/16 06:02 Intake Total 50 ml 1047 ml 1358 ml 49391 ml Output Total 3225 ml Balance 50 ml 1047 ml 1358 ml 35009 ml Intake Oral 900 ml 1200 ml 9040 ml IV Total 50 ml 147 ml 158 ml 6333 ml Output Urine Total 3225 ml # Voids 6 3 35 # Bowel Movements 2 6 Exam General: Alert, Oriented X3, Cooperative, No Acute Distress Head: Normocephalic, atraumatic. External ears normal. Eyes: PERRLA, EOMI. Anicteric sclerae. Mouth: Mouth Normal, Mucous Membranes Moist/[place] Neck: Neck supple with full range of motion. Chest & Lungs: decreased breath sounds on auscultation bilaterally with improvement from previous days exam, still with an intermittent random mild wheeze throughout no crackles or rhonchi. Cardiovascular: irregularly irregular, Normal S1, Normal S2, No Murmurs/Rubs/ Gallops Abdomen: Non-tender, Non-distended, No masses, Normoactive bowel tones, Soft : No irby in place Musculoskeletal: Normal Range of Motion Extremities: No cyanosis/clubbing/edema bilaterally Neurological: Grossly Neurologically Intact, Normal Speech Psych: normal mood and affect Lab and Diagnostics Result Diagram: 10/28/16 0530 10/28/16 0530 Microbiology Microbiology CECI CULTURE BLOOD Final 10/27/16-0600 1. E. [employer] [employer] [facility] Interp --------- ------ * AMIKACIN 16 S * AMPICILLIN >=32 R * AMPICILLIN/SULBACTAM >=32 R * CEFAZOLIN >=64 R * CEFEPIME R * CEFOXITIN <=4 S * CEFTRIAXONE >=64 R * ERTAPENEM <=0.5 S * GENTAMICIN <=1 S * MEROPENEM <=0.25 S * TOBRAMYCIN >=16 R * TRIMETHOPRIM/SULFAMETHOXAZOLE >=320 R * PIPERACILLIN/TAZOBACTAM 8 S X-Rays, CTs and MRIs PROCEDURE: US RENAL SONOGRAM IMPRESSION: 2 cm right renal cyst otherwise kidneys are grossly normal. Dictated by: Ramon JOHNSON Interpreted: Pilar Raymundo MD on 10/22/2016 at 16:09 Assessment & Plan Patient is a 70 year old male with history of CAD with angioplasty, Afib, asthma , BPH, and chronic lower back pain who presents with increased urinary frequency urgency and dysuria. Admitted for UTI with possible pyelonephritis, sepsis, and afib with RVR. 1. Sepsis secondary to ESBL E .coli pyelonephritis, acute. Present on admission. improving. - Pt presents with fever, leukocytosis, tachycardia. Lactic acid normal. 2nd to UTI/pyelonephritis and bacteremia. - urine and blood culture growing ESBL sensitive to meropenem and ertapenem - On meropenem 1 g every 8, covert to Ertapenam 1g q day on 10/28 in preparation for discharge - Isolation - Patient continues to have fever. no other source likely - PICC placed. repeat bcx sent 10/25. possible discharge tomorrow on ertapenem to complete 2 weeks for bacteremia to be DC on 11/07 if afebrile for 24 hours - will start Florastor probiotic to be continued twice daily for one month as outpatient 2. Pyelonephritis, acute. Present on admission. Active and treated. - With possible pyelonephritis given sepsis and right flank pain. UA showed positive nitrite, small leukocyte esterase, 11-50 WBC, moderate bacteria. - Abx as above - Urine cultures ESBL E coli - Renal ultrasound pos for cyst. as above. 3. Bacteremia, present on admission. active improving. - Blood cx - gram neg rods - ESBL. 4. Atrial fibrillation with rapid ventricular rate. Present on admission. Active. - Pt has hx of afib on Warfarin and diltiazem. Possibly worsened secondary to infection. Received Dilt 20 mg IV and metoprolol 5 mg IV, and rate improved to low 100s. - Continue home warfarin with INR now therapeutic at 2.87 and will follow up with Coumadin clinic for INR in two days after discharge - Continue home diltiazem. 240 mg in morning and 180 mg at night - Patient was discontinued from beta erica due to shortness of breath associated to asthma 5. Acute kidney injury. Present on admission.Resolved - Cr 1.3 on admission. Baseline Cr 1 - 1.1. Mild elevation likely secondary to sepsis and possible pyelo, although given his urinary retention, it could be post-obstructive. - Avoid nephrotoxic medications - Resume home Lasix, lisinopril, allopurinol, colchicine. 6. Elevated troponin, acute. Present on admission. - Likely secondary to demand ischemia with sepsis. He also appears to have CKD Stage 2 based on past Cr, which may also play a role - trended down. 7. Diabetes mellitus, chronic. Present on admission. - BG 162 on admission. - Humalog low dose correctional scale - Diabetic diet - A1c 7.9 - Continue home gabapentin - resume home glipizide 8. BPH, chronic - Continue home tamsulosin 9. Asthma/COPD - Albuterol neb q4h PRN - Duoneb q4h scheduled - start QVAR beclomethasone steroid inhaler 10/27 to replace prior Dulera, will be continued for 1 month as outpatient to be followed up with PCP - Atrovent ipratropium inhaler started today and continued with follow up with PCP 10. Coronary artery disease with prior MS - Continue aspirin 11. GERD - Famotidine 20 mg BID 12. Hyperlipidemia - resume rosuvastatin, fenofibrate 13. Hypothyroidism - Continue Levothyroxine 14. Obesity, present on admission. - BMI 39.8 15. Chronic Hypertension, not present on admission, active. - Will continue home medication. Acetaminophen for mild pain when necessary. Bowel regimen Senna and MiraLAX scheduled and PRN. Zofran when necessary for nausea and vomiting. SubQ heparin held for now. SCDs in place. High-risk medications: Warfarin Disposition: discharge in today with PICC and infusion solutions following, VTE Prophylaxis: Theraputic Anticoag with Warfarin VTE Mechanical Devices: Intermittant Pneumatic CD Resuscitation Status: CPR: Attempt Resuscitation Attending Statement The patient was seen and examined together with Dr. Velez on 10/28/2016 and I agree with the history, exam and plan as outlined in the note above. . Virgilio Velez DO Oct 28, 2016 06:48 Royal Amor MD Oct 30, 2016 07:23
--- NOTE | 2016-10-28 17:50 | PCM.DC.MED ---
Discharge Summary Date of Service Oct 28, 2016 Dates of Hospitalization Date of Hospital Admission Oct 22, 2016 at 12:00 Date of Discharge: Oct 28, 2016 Providers: Admitting Physician: Amado Spear MD Primary Care Physician: Triston North MD Attending Physician: Amado Spear MD Diagnosis at Time of Discharge Diagnosis at Time of Discharge 1. Sepsis secondary to ESBL E .coli pyelonephritis 2. Pyelonephritis 3. Bacteremia 4. Atrial fibrillation with rapid ventricular rate 5. Acute kidney injury 6. Mild Normocytic Anemia 7. Diabetes mellitus 8. BPH, chronic 9. Asthma/COPD 10. Coronary artery disease with prior PR 11. GERD 12. Hyperlipidemia 13. Hypothyroidism 14. Obesity 15. Chronic Hypertension Procedures XRay, CTs & MRIs PROCEDURE: US RENAL SONOGRAM IMPRESSION: 2 cm right renal cyst otherwise kidneys are grossly normal. Dictated by: Ramon Cerrato Fabiana Interpreted: Pilar Raymundo MD on 10/22/2016 at 16:09 Brief History from the H&P of Jordan Dacosta DO"Patient is a 70 year old male with history of CAD with angioplasty, Afib, asthma, BPH, and chronic lower back pain who presents with increased urinary frequency urgency and dysuria. He states his symptoms started yesterday afternoon and worsened throughout the night. He reports he has been having urgency, going to urinate every 15 minutes at worst overnight, with small amounts of urine. He states his bladder feels full and he does not completely empty it. He states he was in his usual state of health other than some shortness of breath related to his asthma over the past 4 weeks since a URI about a month ago. The patient states that two days ago his back began bothering him more bilaterally. He has a lumbar surgery performed November 2015 and since that time he has been relatively pain free. The back pain occurred 1 day before the urinary symptoms. He reports some right sided flank pain as well. The patient denies any penile discharge, and has never had a UTI. In the ED, the patient was febrile at 38 C, tachycardic at 120. WBC was 22.9, Cr was 1.3, glucose 162. Lactic acid was normal at 1.5. Troponin was 0.033, procalcitonin 0.19. CXR was normal. EKG showed afib with RVR without ischemic changes. The patient denies history of chronic kidney disease however review of previous labs show GFR in 60s consistent with Stage 2 CKD. He has a history of asthma/COPD he is not taking inhaled steroids due to out of pocket cost." Hospital Course 1. Sepsis bacteremia secondary to ESBL E .coli pyelonephritis, acute. Present on admission. improving. - Pt presents with fever, leukocytosis, tachycardia. Lactic acid normal. 2nd to UTI/pyelonephritis and bacteremia. - patient initially started on Rocephin IV in [facility] ED given diagnosis of pyelonephritis - urine and blood culture growing ESBL E. Coli sensitive to meropenem and ertapenem patient placed in isolation - Started on meropenem 1 g every 8, coverted to Ertapenam 1g q day on 10/28 in preparation for discharge and ease of once daily infusions - PICC placed for outpatient antibiotic transfusions. repeat bcx sent 10/25 due to recurrence of fever discharge tomorrow on ertapenem to complete 2 weeks for bacteremia to be DC on 11/07 if afebrile for 24 hours - started Florastor probiotic to be continued twice daily for one month as outpatient 2. Atrial fibrillation with rapid ventricular rate. Present on admission. Active. - Pt has hx of afib on Warfarin and diltiazem. Possibly worsened secondary to infection. Received Dilt 20 mg IV and metoprolol 5 mg IV in ED, started on Diltiazem drip at admission by hospitalist service - Continued home warfarin with INR until therapeutic at 2.87 and will follow up with Coumadin clinic for INR in two days after discharge - Continue home diltiazem. 240 mg in morning and 180 mg at night - Patient was discontinued from beta erica for rate control in according to [facility] records due to shortness of breath associated to asthma 3. Acute kidney injury on Chronic Kidney disease stage 2. Present on admission.Resolved - Cr 1.3 on admission. Baseline Cr 1 - 1.1. Mild elevation likely secondary to sepsis and possible pyelo, although given his urinary retention, it could be post-obstructive. - Avoided further nephrotoxic medications 4. Elevated troponin, acute. Present on admission. - Likely secondary to demand ischemia with sepsis. He also appears to have CKD Stage 2 based on past Cr, which may also play a role - trended down. 5. Diabetes mellitus, chronic. Present on admission. - BG 162 on admission. - Humalog low dose correctional scale while inpatient discontinued prior to discharge - Diabetic diet - A1c 7.9 - resume home glipizide 6. BPH, chronic - Continue home tamsulosin 7. Asthma/COPD - Albuterol neb q4h PRN - Duoneb q4h scheduled - start QVAR beclomethasone steroid inhaler 10/27 to replace prior Dulera, will be continued for 1 month as outpatient to be followed up with PCP - Atrovent ipratropium inhaler started today and continued with follow up with PCP 8. Coronary artery disease with prior PR - Continue aspirin 9. GERD - Famotidine 20 mg BID 10. Hyperlipidemia - resume rosuvastatin, fenofibrate 11. Hypothyroidism - Continue Levothyroxine 12. Obesity, present on admission. - BMI 39.8 13. Chronic Hypertension, not present on admission, active. -continued home medication. Exam Vital Signs (Last) Date Time Temp Pulse Resp B/P Pulse Ox O2 Delivery O2 Flow Rate FiO2 10/28/16 10:58 130 10/28/16 10:08 36.3 16 146/71 93 Room Air Exam General: Alert, Oriented X3, Cooperative, No Acute Distress Head: Normocephalic, atraumatic. External ears normal. Eyes: PERRLA, EOMI. Anicteric sclerae. Mouth: Mouth Normal, Mucous Membranes Moist/[place] Neck: Neck supple with full range of motion. Chest & Lungs: decreased breath sounds on auscultation bilaterally with improvement from previous days exam, still with an intermittent random mild wheeze throughout no crackles or rhonchi. Cardiovascular: irregularly irregular, Normal S1, Normal S2, No Murmurs/Rubs/ Gallops Abdomen: Non-tender, Non-distended, No masses, Normoactive bowel tones, Soft : No irby in place Musculoskeletal: Normal Range of Motion Extremities: No cyanosis/clubbing/edema bilaterally Neurological: Grossly Neurologically Intact, Normal Speech Psych: normal mood and affect Test 10/22/16 08:00 10/22/16 08:43 10/22/16 15:25 10/25/16 02:55 Urine Color Dark yellow (YELLOW) Urine Appearance Cloudy (CLEAR,HAZY) Urine pH 5.5 (5.0-8.0) Urine Specific [place] 1.030 (1.003-1.035) Urine Protein 100mg/dL (NEG,TRACE) Urine Glucose (UA) Negativemg/dL (NEGATIVE) Urine Ketones Tracemg/dL (NEGATIVE) Urine Occult Blood Large (NEGATIVE) Urine Nitrite Positive (NEGATIVE) Urine Bilirubin Negative (NEGATIVE) Urine Urobilinogen Normalmg/dL (NORMAL) Urine Leukocyte Esterase Small (NEGATIVE) Urine RBC 3-10/hpf (0-2) Urine WBC 11-50/hpf (0-5) Urine Epithelial Cells Occasional/hpf (NONE-MOD) Urine Crystals None seen (NONE SEEN) Urine Bacteria Moderate/hpf (NONE-FEW) Urine Hyaline Casts None/lpf (NONE) Urine Granular Casts None seen (NONE SEEN) Urine Waxy Casts None seen (NONE SEEN) Urine Red Blood Cell Casts None seen (NONE SEEN) Urine White Blood Cell Casts None seen (NONE SEEN) Urine Mucus None seen (None Seen) Urine Trichomonas None seen (NONE SEEN) Urine Yeast None (NONE SEEN) Urinalysis Comment None Urine Culture Reflexed Indicated Hemoglobin A1c 7.9% (4.8-5.6) Hold Miller Top Tube Received (Received) Urine Random Creatinine 86mg/dL (22-328) Urine Random Sodium 45mEq/L Lactic Acid Level 1.7mmol/L (0.4-2.0) Troponin T 0.027ug/L (0.0-0.011) Test 10/28/16 05:30 White Blood Count 7.0th/mm3 (3.8-10.1) Red Blood Count 3.96mil/mm3 (4.40-5.80) Hemoglobin 11.8g/dL (13.8-17.2) Hematocrit 36.1% (41.0-50.0) Mean Corpuscular Volume 91.2fL (81-100) Mean Corpuscular Hemoglobin 29.8pg (27.0-35.0) Mean Corpuscular Hemoglobin Concent 32.7% (32.0-37.0) Red Cell Distribution Width 14.6% (12.3-15.4) Platelet Count 200bil/L (150-400) Neutrophils (%) (Auto) 65.9% (40-74) Lymphocytes (%) (Auto) 19.7% (14-46) Monocytes (%) (Auto) 11.2% (4-12) Eosinophils (%) (Auto) 2.2% (0-5) Basophils (%) (Auto) 0.4% (0-3) Prothrombin Time 31.4sec (8.1-12.5) Prothromb Time International Ratio 2.87ratio Sodium Level 139mEq/L (134-144) Potassium Level 3.5mEq/L (3.5-5.2) Chloride Level 98mEq/L (97-108) Carbon Dioxide Level 26mmol/L (18-29) Blood Urea Nitrogen 10mg/dL (8-27) Creatinine 0.87mg/dL (0.76-1.27) Estimat Glomerular Filtration Rate 92mL/min (>59) Glucose Level 205mg/dL (60-99) Calcium Level 8.7mg/dL (8.5-10.1) Phosphorus Level 2.6mg/dL (2.5-4.9) Magnesium Level 1.9mg/dL (1.6-2.6) Total Bilirubin 0.5mg/dL (0.0-1.2) Aspartate Amino Transf (AST/SGOT) 28U/L (0-50) Alanine Aminotransferase (ALT/SGPT) 26U/L (0-44) Alkaline Phosphatase 54U/L (25-160) Total Protein 6.1g/dL (6.4-8.4) Albumin 3.4g/dL (3.4-5.0) Procalcitonin 0.33ng/mL (0.00-0.08) Microbiology Results Microbiology CECI CULTURE BLOOD Final 10/27/16-599 1. E. [employer]I [employer] MA[employer]GER M[facility] Interp --------- ------ * AMIKACIN 16 S * AMPICILLIN >=32 R * AMPICILLIN/SULBACTAM >=32 R * CEFAZOLIN >=64 R * CEFEPIME R * CEFOXITIN <=4 S * CEFTRIAXONE >=64 R * ERTAPENEM <=0.5 S * GENTAMICIN <=1 S * MEROPENEM <=0.25 S * TOBRAMYCIN >=16 R * TRIMETHOPRIM/SULFAMETHOXAZOLE >=320 R * PIPERACILLIN/TAZOBACTAM 8 S Discharge Medications Discharge Medications Allopurinol (Allopurinol) 100 Mg Tablet 100 MG PO BID (Reported) Aspirin (Aspirin) 81 Mg Tablet 81 MG PO DAILY (Reported) Beclomethasone Dipropionate (Qvar) 8.7 Gm Aer.w.adap 1 PUFF INHALATION BID Prescribed by: LOLA FRANCO DO Calcium Carbonate/Vitamin D3 (Calcium + Vitamin D Tablet) 1 Each Tablet 2 EACH PO MORNING (Reported) Diltiazem ER (Diltiazem ER) 240 Mg Cap.er.deg 240 MG PO MORNING Prescribed by: JJ MCFARLAND MD Diltiazem ER (Diltiazem ER) 180 Mg Cap.er.24h 180 MG PO HS Prescribed by: JJ MCFARLAND MD Ertapenem Sodium (Invanz) 1,000 Mg/10 Ml Vial 1,000 MG IV DAILY Prescribed by: LOLA FRANCO DO Fenofibrate (Fenofibrate) 160 Mg Tablet 160 MG PO DAILY (Reported) Furosemide (Furosemide) 40 Mg Tablet 40 MG PO DAILY (Reported) Gabapentin (Gabapentin) 100 Mg Capsule 100 MG MORNING (Reported) Gabapentin (Gabapentin) 100 Mg Capsule 100 MG PO HS (Reported) Glipizide (Glipizide) 5 Mg Tablet 5 MG PO BID (Reported) Ipratropium Shiro (Atrovent HFA) 200 Puff/12.9 Gm Inhaler 2 PUFF INH QID Prescribed by: LOLA FRANCO DO Levothyroxine (Levothyroxine) 150 Mcg Tablet 150 MCG PO QAM (Reported) Lisinopril (Lisinopril) 20 Mg Tablet 20 MG PO MORNING (Reported) Magnesium Chloride (Slow-Mag) 64 Mg Tablet 2 TABLET PO QAM (Reported) Multivits-Min/FA/Lycopene/Lut (Centrum Silver Tablet) 1 Each Tablet 1 EACH PO DAILY (Reported) Niacin ER (Niaspan) 1,000 Mg Tablet 2,000 MG PO HS (Reported) Potassium Chloride ER (Potassium Chloride ER) 10 Meq Tablet 20 MEQ PO DAILY ( Reported) TAKE WITH FOOD Pramipexole Dihydrochloride (Mirapex) 0.5 Mg Tablet 0.5 MG PO QPM (Reported) Ranitidine (Ranitidine) 150 Mg Capsule 150 MG PO BID (Reported) Rosuvastatin Calcium (Crestor) 40 Mg Tablet 40 MG PO DAILY (Reported) Saccharomyces Boulardii (Florastor) 250 Mg Capsule 250 MG PO BID Prescribed by: LOLA FRANCO DO Tamsulosin (Flomax) 0.4 Mg Capsule 0.4 MG PO BID (Reported) Warfarin Sodium (Warfarin Sodium) 5 Mg Tablet 5 MG PO DAILY (Reported) As needed Albuterol Neb Soln (Albuterol Neb Soln) 2.5 Mg/3 Ml Vial.neb 1 VIAL INHALATION Q4H PRN PRN For Shortness of Breath (Reported) Albuterol Sulfate (Ventolin HFA Inhaler) 200 Puff/18 Gm Inhaler 2 PUFF INH Q4 PRN PRN For Wheezing (Reported) Colchicine (Colcrys) 0.6 Mg Tablet 1-2 TABLET PO PRN GOUT (Reported) Fluticasone Propionate (Fluticasone Propionate Nasal) 16 Gm [place].susp 2 SPRAY NS DAILY PRN PRN Nasal Congestion (Reported) Miscellaneous Medications [place]-3/Dha/Epa/Fish Oil (Fish Oil 1,000 mg Softgel) 1 Each Capsule 1 EACH PO ( Reported) Additional med instructions For your recent blood and kidney infection arrangements have been made to receive home infusions of antibiotic Ertapenam 1g through a PICC line every day starting in the hospital on 10/28 through 11/07 to complete a two week course of appropriate antibiotic therapy. You will also be started on a probiotic to help replace your intestinal selena which is called [employer] AcceleratorriteshDraftMix and is a [place]com[place] probiotic to be taken twice daily for 1 month. For your atrial fibrillation we will continue your whole home diltiazem dosing and request that he follow up with your flush tester with the appointment that you have reported which is scheduled for a few weeks. For your anticoagulation on warfarin we would like for you to continue your regular home dosing to follow up with the Coumadin clinic within the next few days before October 31 to confirm that your properly anticoagulated on your current warfarin dosing. For your COPD/asthma you were previously only on an albuterol rescue inhaler. To this we will add a beclomethasone inhaler as well as an ipratropium inhaler. Review of cheap pharmacy prices showed the best prices at either [facility] or [facility] however he may want to check prior to purchase. Please continue to take these inhalers as directed and informed your primary care physician that these medications were started at this hospitalization and that more aggressive treatment of your COPD/asthma may be necessary to continue in the future. Long- acting bronchodilators might be indicated for your COPD however due your asthma these medications will be held and consideration for starting should be placed on your primary care physician. We will continue all your regular home medications including furosemide, lisinopril, allopurinol, colchicine, glipizide, gabapentin, tamsulosin, levothyroxin, rosuvastatin, fenofibrate, and famotidine according to your current outpatient dosing. Followup Plan Disposition: home Follow-up plan As discussed above in your patient instructions and medication instructions plan. Please contact the [facility] upon your arrival home so that you may guarantee no delay in your patient instructions on antibiotic infusions. Please follow up with your regular Coumadin clinic within the next few days before October 31 for evaluation of your warfarin levels. Please follow-up with your primary care physician within the next week for evaluation of your new medications as well as overall health. Please follow-up with your regular flush tester for evaluation of your atrial fibrillation at your scheduled appointment in 2 weeks. Discharge Diet: Heart Healthy, Diabetic Discharge Activity: Limited until seen by PCP Patient Instructions For your recent blood and kidney infection arrangements have been made to receive home infusions of antibiotic Ertapenam 1g through a PICC line every day starting in the hospital on 10/28 through 11/07 to complete a two week course of appropriate antibiotic therapy. A company has been contracted [employer] to provide training to your who is registered nurse to complete these infusions at home. The infusion solution team should make a home visit within the next day. You will also be started on a probiotic to help replace your intestinal selena which is called Ananda and is a Sarcomyces probiotic to be taken twice daily for 1 month. For your atrial fibrillation we will continue your whole home diltiazem dosing and request that he follow up with your flush tester with the appointment that you have reported which is scheduled for a few weeks. For your anticoagulation on warfarin we would like for you to follow up with the Coumadin clinic within the next few days before October 31 to confirm that your properly anticoagulated on your current warfarin dosing. For your COPD/asthma you were previously only on an albuterol rescue inhaler. To this we will add a beclomethasone inhaler as well as an ipratropium inhaler and a formoterol inhaler. Please continue to take these inhalers as directed and informed your primary care physician that these medications were started at this hospitalization and that more aggressive treatment of your COPD/asthma may be necessary to continue in the future. We will continue all your regular home medications including furosemide, lisinopril, allopurinol, colchicine, glipizide, gabapentin, tamsulosin, levothyroxin, rosuvastatin, fenofibrate, and famotidine according to your current outpatient dosing. Follow-up Provider: Triston North MD Follow-up with PCP in: 1 week Mid-level Provider: Jonathan Beatty PA-C Follow-up with Mid-level in: 2 weeks Time spent Greater than 30 minutes was spent in preparation of discharge with greater than 50% of that time dedicated to patient counseling and coordination of care. . Attending Statement The patient was seen and examined together with Dr. Franco on 10/28/2016 and I agree with the history, exam and plan as outlined in the note above. . copies to: Triston North MD, Nicholas K DO Oct 28, 2016 17:50 Royal Amor MD Oct 30, 2016 07:24
--- NOTE | 2016-10-28 18:20 | NUR ---
Discharge Discharge orders received , patient's at bedside and can take patient home if leaves before 1230. Patient anxious to leave. Denies any pain. Vital signs stable. Instructions gone over with patient and . Picc line instructions including care and infection symptoms. Flushed all ports with no incidence. reports they will notify the infusion therapy when they get home. All prescriptions sent with patient. Patient and deny any questions. Patient assisted out of facility via wheel chair with no problem.
== END 2016-10-28 12:15 | disposition home or self-care (01) | DRG 872 ==
LOC: SED 07:48 → PCC 12:00
PROVIDERS: ADMIT Internal Medicine; ATTEND Internal Medicine
DX: A41.51 Sepsis due to Escherichia coli [E. coli] (principal); N17.9 Acute kidney failure, unspecified; I24.8 Other forms of acute ischemic heart disease; N10 Acute pyelonephritis; Z79.01 Long term (current) use of anticoagulants; Z79.82 Long term (current) use of aspirin; Z95.5 Presence of coronary angioplasty implant and graft; Z87.891 Personal history of nicotine dependence; I48.91 Unspecified atrial fibrillation; E11.9 Type 2 diabetes mellitus without complications; N40.0 Benign prostatic hyperplasia without lower urinary tract symptoms; J44.9 Chronic obstructive pulmonary disease, unspecified; J45.909 Unspecified asthma, uncomplicated; I25.2 Old myocardial infarction; I25.10 Atherosclerotic heart disease of native coronary artery without angina pectoris; K21.9 Gastro-esophageal reflux disease without esophagitis; E03.9 Hypothyroidism, unspecified; E66.01 Morbid (severe) obesity due to excess calories; Z68.39 Body mass index [BMI] 39.0-39.9, adult; B96.20 Unspecified Escherichia coli [E. coli] as the cause of diseases classified elsewhere; I10 Essential (primary) hypertension; Z79.84 Long term (current) use of oral hypoglycemic drugs

== ENCOUNTER → 2017-04-13 | Day surgery (SDC) | payer OTHER ==
[2017-04-13] VITALS (7 sets, daily range): BP systolic 135–151; BP diastolic 62–79; PULSE 61–84; RESP 14–16; O2SAT 94–97
[~2017-04-13] VITALS: Ht 177.8 cm; Wt 122.0 kg
[~2017-04-13] MED LIST changes: +ATRINH INH; +BECL8.7A6 INHALATION; +BENZ200C44 PO; +CALC-140 PO; +CYCL5TAB PO; -HYDR-4150 PO; +INVANZ1I IV; -LEVO500T79 PO; +LISI-567 PO; -LISI-571 PO; -LOV120 SUBQ; +Lactated Ringer's 1,000 ML IV ONE; -MOME13HF IH; +MOME13HF4 IH; -MONT10TA20 PO; +MONT10TA23 PO; +OXYB5TAB10 PO; -PRE10 PO; +Phenylephrine/NS 100 mCg/mL 10 mL Syringe IVPUSH ONE; +Propofol 10,000 mCg/mL 20 mL Inj ONE; +SACC250C PO; +TAMS0.4C98 PO; -TIOT18CA3 IH; +TIOT4MIS3 IH; +fentaNYL-PF 50 mCg/mL 2 mL Inj ONE
--- NOTE | 2017-04-13 13:05 | PCM.HPANE ---
Patient Data Surgeon Admitting Provider: Attending Provider:Db Clancy MD Primary Care Physician:Triston North MD Other Provider:Krissy Bustos Anesthesia Reason for Visit Constipation Ht/WT & BMI Height (Feet): 5 Height (Inches): 10 Weight (Kilograms): 122.02 Body Mass Index 38.00 Allergies Coded Allergies: Penicillins (Verified Allergy, Intermediate, HIVES, 04/09/17) Past Anesthesia History Anesthesia History: Denies:: Abnormal Airway, Anesthesia Reactions, Difficult Intubation, Fam Anesthesia Reaction, Fam Malignant Hypertherm, Malignant Hyperthermia Diabetes History Hx Diabetes?: Yes Current Bedside Blood Glucose: 133 MRSA MRSA: No Medications Blood Thinner: Coumadin Last Dose Blood Thinner: Apr 08, 2017 Hypertension Medication: Yes Home Meds Incl Beta Martin: No Active Scripts Ipratropium Bend (Atrovent HFA)200 Puff/12.9 Gm Inhaler2 Puff INH QID #1 INH Ref 2 Prov:Virgilio Velez DO 10/28/16 Ertapenem Sodium (Invanz)1,000 Mg/10 Ml Vial1,000 Mg IV DAILY #10 VIAL Prov:Virgilio Velez DO 10/28/16 Saccharomyces Boulardii (Florastor)250 Mg Svcunmg470 Mg PO BID #60 CAPSULE Prov:Virgilio Velez DO 10/28/16 Diltiazem ER 180 Mg Cap.er.31u383 Mg PO HS #30 CAPSULE Ref 0 Prov:Maria L Richardson MD 04/13/15 Diltiazem ER 240 Mg Cap.er.eem137 Mg PO MORNING #30 CAPSULE Ref 0 Prov:Maria L Richardson MD 04/13/15 Reported Medications Warfarin Sodium 5 Mg Tablet5 Mg PO DAILY 30 Days Ref 0 04/13/17 Montelukast 10 Mg Zvpfqo18 Mg PO HS Ref 0 04/09/17 Tiotropium Br/Olodaterol HCl (Stiolto Respimat Inhal Nathalie)2.5 Mcg-2.5 Mcg/ Actuation Mist.inhal4 Gm IH 04/09/17 Oxybutynin Chloride 5 Mg Tablet5 Mg PO TID Ref 0 04/09/17 Gabapentin 300 Mg Bzgjyrp564 Mg PO DAILY Ref 0 04/09/17 Cyclobenzaprine 5 Mg Tablet5 Mg PO TID PRN Spasm 04/09/17 Mometasone Furoate (Asmanex Hfa)200 Mcg/Actuation Hfa.aer.ad13 Gm IH 04/09/17 Tamsulosin (Flomax)0.4 Mg Capsule0.4 Mg PO BID Ref 0 10/22/16 Calcium Carbonate/Vitamin D3 (Calcium + Vitamin D Tablet)1 Each Tablet2 Each PO MORNING 10/22/16 Lisinopril 20 Mg Ebvpmv81 Mg PO MORNING 30 Days Ref 0 10/22/16 Glipizide 5 Mg Tablet5 Mg PO BID 30 Days 10/22/16 Albuterol Sulfate (Ventolin HFA Inhaler)200 Puff/18 Gm Inhaler2 Puff INH Q4 PRN For Wheezing Ref 0 04/08/15 Magnesium Chloride (Slow-Mag)64 Mg Tablet2 Tablet PO QAM 04/08/15 Ranitidine 150 Mg Snaoqro749 Mg PO BID GERD Ref 0 04/08/15 Potassium Chloride ER 10 Meq Jehbgk68 Meq PO DAILY Ref 0 TAKE WITH FOOD 04/08/15 Niacin ER (Niaspan)1,000 Mg Tablet2,000 Mg PO HS Ref 0 04/08/15 Pramipexole Dihydrochloride (Mirapex)0.5 Mg Tablet0.5 Mg PO QPM 04/08/15 Levothyroxine 150 Mcg Vbicaz058 Mcg PO QAM Ref 0 04/08/15 Multivits-Min/FA/Lycopene/Lut (Centrum Silver Tablet)1 Each Tablet1 Each PO DAILY 04/08/15 Furosemide 40 Mg Fepmcb17 Mg PO DAILY 04/08/15 Leland-3/Dha/Epa/Fish Oil (Fish Oil 1,000 mg Softgel)1 Each Capsule1 Each PO 04/08/15 Fenofibrate 160 Mg Rtyxyw700 Mg PO DAILY Ref 0 04/08/15 Rosuvastatin Calcium (Crestor)40 Mg Xdeerx60 Mg PO DAILY Ref 0 04/08/15 Colchicine (Colcrys)0.6 Mg Tablet1-2 Tablet PO PRN GOUT 04/08/15 Aspirin 81 Mg Ekamgb30 Mg PO DAILY Ref 0 04/08/15 Allopurinol 100 Mg Fyevoc787 Mg PO BID Ref 0 04/08/15 Albuterol Neb Soln 2.5 Mg/3 Ml Vial.neb1 Vial INHALATION Q4H PRN For Shortness of Breath Ref 0 04/08/15 Discontinued Reported Medications Albuterol Sulfate (Ventolin HFA Inhaler)200 Puff/18 Gm Inhaler1 Puff INH Q4 PRN For Wheezing #1 INHALER Ref 0 04/09/17 Benzonatate 200 Mg Fexmwrf186 Mg PO 04/09/17 Fluticasone Propionate (Fluticasone Propionate Nasal)16 Gm Nathalie.susp2 Nathalie NS DAILY PRN Nasal Congestion Ref 0 04/08/15 Gabapentin 100 Mg Owrmguc608 Mg PO HS 30 Days Ref 2 10/22/16 Gabapentin 100 Mg Recrooe732 Mg MORNING 30 Days Ref 1 10/22/16 Warfarin Sodium 5 Mg Tablet5 Mg PO DAILY Ref 0 04/08/15 Discontinued Scripts Beclomethasone Dipropionate (Qvar)8.7 Gm Aer.w.adap1 Puff INHALATION BID #8.7 GM Prov:Virgilio Velez DO 10/28/16 History History of ENT Problems?: No HEENT History: Positive for:: Cataracts (operated 2014) Denies:: Dysphagia Sinus Problem Denture Type: None Teeth Condition: Within Normal Limits Hx of Heart Problems?: Yes Cardiovascular History: Positive for:: Atrial Fibrillation Chest Pain (1 year ago, stent placed november 2010) Hypertension Denies:: Congestive Heart Failure Edema Heart Murmur Irregular Heartbeat Pacemaker Thrombophlebitis Other Cardiac History: No current CP Hx of Respiratory Problem?: Yes Respiratory History: Positive for:: Asthma (on inhalers.) COPD Pneumonia Denies:: Chest Surgery Dyspnea Emphysema Hemoptysis Tuberculosis Hx Neurologic Problems?: No Neurological History: Positive for:: 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) Denies:: Alzheimer's Disease Dementia Dizziness Headaches Parkinson's Disease Seizures Hx of GI Problems?: Yes Hx of Problems?: Yes Genitourinary History: Denies:: HX of Hemodialysis Kidney Stones Urinary Tract Infection HX of Peritoneal Dialysis: No Male Hx: Positive for:: Prostate Problems (surgery in 2002) Denies:: Scrotal Mass Testicular Surgery Hx Musculoskeletal Problems?: Yes Musculoskeletal History: Positive for:: Back Injury (, last surgey november2015) Denies:: Joint Replacement Hx of Psycho/Social Problems?: No Psycho Social History: Denies:: Anxiety Bipolar Disorder Hx Depression Suicide Attempt Hx Surgeries?: Yes (back x 2, knee, ) Hx Any Other Health Problems?: Yes Other History: Positive for:: Hospitalization (multiple) Thyroid Disease (on Levothyroxine) Denies:: Cancer Endocrine Disease History Blood Transfusions: Denies:: Blood Transfuse Reaction Blood Transfusions Hx Diabetes: YesBedside Blood Glucose: 133 Hx Alcohol Use: Yes (rarely)Hx Substance Use: No Smoking Status: Former Smoker Stop/Bang Treated for Sleep Apnea?: Yes Do You Have a CPAP Machine?: Yes ERICK Risk Assessment: High Risk, =/>3 Yes Risk Assessment Category Category 1A: Patient has history of documented sleep apnea, and HAS NOT received any narcotic, sedative or anesthesia administration during this stay. Category 1B: Patient has history of documented sleep apnea, and HAS received any narcotic , sedative or anesthesia administration during this stay Category 2: Patient has SUSPECTED Obstructive Sleep Apnea, and HAS received any narcotic , sedative or anesthesia administration during this stay. Category 3: Patient has SUSPECTED Obstructive Sleep Apnea and HAS NOT received narcotic, sedative or anesthesia administration during this stay. Category 4: Outpatient in Procedural Areas with known sleep apnea or who screen positive for High Risk via the STOP/BANG questionnaire. Exam Exam Vital Signs Vital Signs Date Time Temp Pulse Resp B/P Pulse Ox O2 Delivery O2 Flow Rate FiO2 04/13/17 12:27 67 16 150/76 97 Room Air General Appearance: Alert, Oriented X3, Cooperative, No Acute Distress HEENT/AIRWAY: MP 2 Lungs: Clear to Auscultation, Normal Air Movement Heart: Exam Unremarkable, Regular Rate/Rhythm, No Murmurs/Rubs/Gallops Meds/Labs/Diagnostics Admission Meds Current Medications Lactated Ringer's (Lr) 1,000 ml @ 120 mls/hr Q8H20M ONCE IV Last administered on 04/13/17t 12:47; Start 04/13/17 at 05:00; Stop 04/13/17 at 13:19 Bedside Blood Glucose: 133 Plan Impression Patient chart reviewed, patient interviewed and anesthestic plan with risks, benefits, and alternatives discussed, and informed consent obtained. NPO per Anesth. Guidelines: Yes ASA Physical Status: ASA3 Severe Disease Anesthetic Plan: GA Bene/Risks/Altern/Consents: Yes HP Complete Prior to Induction: Yes Aurelio Florez MD Apr 13, 2017 13:05
--- NOTE | 2017-04-13 15:26 | PCM.ANEP1 ---
Post Anesthesia PACU Phase 1 Assessment Vital Signs Vital Signs Date Time Temp Pulse Resp B/P Pulse Ox O2 Delivery O2 Flow Rate FiO2 04/13/17 15:03 84 14 95 Room Air 04/13/17 14:54 61 14 143/78 95 Room Air 04/13/17 14:48 67 16 136/62 95 Room Air 04/13/17 14:29 66 16 135/75 95 Room Air 04/13/17 14:17 71 16 147/78 95 Room Air 04/13/17 13:56 76 14 151/79 94 Room Air 04/13/17 12:27 67 16 150/76 97 Room Air Anesthetic Administered: GA Level of Alertness: Awake, talking [place]AMPAGNE's with Equal Strength: Yes Pain: No Nausea or Vomiting: No CV Function & Hydration Stable: Yes Airway Device: Oxygen Delivery: Nasal Cannula Lungs: Clear to Auscultation, Normal Air Movement PACU Phase 2 Assessment Complications: No Follow up Care: N/A Patient Instructions Provided: N/A Aurelio lForez MD Apr 13, 2017 15:26
--- NOTE | 2017-04-13 20:55 | ENDO ---
[address] [address] ENDOSCOPY PROCEDURE PATIENT: PAULIE SKY : 1945 MR#: [id number] ADMIT: 04/13/2017 JOB ID: [id number] DATE: 04/13/2017 PRIMARY PROVIDER: Triston North MD. PROCEDURE: Colonoscopy with hot snare polypectomy and cold snare polypectomy. INDICATIONS: A 71-year-old male with a tendency towards constipation. He had an unremarkable colonoscopy 10 years ago. Repeat exam was requested. EQUIPMENT: [employer]-H190L. SEDATION: Monitored anesthesia was provided by Dr. Aurelio Florez. COMPLICATIONS: None identified. BOWEL PREPARATION: Fair. PROCEDURE IN DETAIL: After the risks and benefits were explained, written and verbal informed consent was obtained, the patient was brought into the endoscopy suite and placed into the left lateral decubitus position. Sedation was achieved using the above-stated medications with the addition of oxygen via nasal cannula. A digital rectal examination was accomplished. No significant pathology appreciated. The scope was introduced into the rectum and advanced under direct visualization to the level of the cecum, as identified by the appendiceal orifice and ileocecal valve. The scope was slowly withdrawn to carefully examine the mucosa for any defects or lesions. Multiple direct views were made through the dentate line for exclusion of pathology. The colon was decompressed, the scope removed from the patient who tolerated the procedure well. FINDINGS: In the transverse colon, there were a couple of 6-8 mm sessile polyps removed with hot snare. A little more distally in the transverse, there was a diminutive 3-4 mm polyp removed with cold snare. This one was not retrieved but was removed. No other significant pathology was appreciated throughout. ENDOSCOPIC DIAGNOSES: 1. Colon polyps. 2. Hemorrhoids. RECOMMENDATIONS: 1. Await histopathology. 2. Continue fiber supplementation. Recommend GI clinic. 3. Repeat colonoscopy in three years' time. 4. Okay to restart Coumadin in a couple of days time.
--- NOTE | 2017-04-16 18:33 | PATH ---
SURGICAL PATHOLOGY Attending Physician:Vishnu Wills CASE STATUS: Signed Out PATIENT NAME: PAULIE SKY PID: [id number] : 1945 DATE COLLECTED:04/13/2017 00:00 SPECIMEN: Colon, Polyp CLINICAL HISTORY: 1). COLON POLYPS FINAL DIAGNOSIS: 1.COLON POLYPS, POLYPECTOMIES: TUBULAR ADENOMA X2. ICD10 D12.6 GROSS DESCRIPTION: The specimen is received in one formalin filled container labeled with the patient's name, sublabeled "colon polyps" and consists of 2 portions of tissue which aggregate to 0.6 x 0.6 x 0.5 CM. The specimen is entirely submitted in one cassette. 04/14/2017DC MICRO DESCRIPTION: See diagnosis. ICD-9 CODES: CPT CODES: 1: 63965 Electronically Signed Out Daniel Velazquez MD, Ph.D. [facility] Pathology [facility] [address], [place] [address] Technical component performed at [facility], [facility] [address], [place], [address]
== END | disposition home or self-care (01) ==
LOC: END 00:22
PROVIDERS: ATTEND Internal Medicine Gastroenterology
DX: Z12.11 Encounter for screening for malignant neoplasm of colon (principal); D12.3 Benign neoplasm of transverse colon; K64.9 Unspecified hemorrhoids; K59.00 Constipation, unspecified; I10 Essential (primary) hypertension; I25.10 Atherosclerotic heart disease of native coronary artery without angina pectoris; E11.9 Type 2 diabetes mellitus without complications; I48.2 Chronic atrial fibrillation; J45.909 Unspecified asthma, uncomplicated; J44.9 Chronic obstructive pulmonary disease, unspecified; K21.9 Gastro-esophageal reflux disease without esophagitis; G25.81 Restless legs syndrome; G47.33 Obstructive sleep apnea (adult) (pediatric); E66.01 Morbid (severe) obesity due to excess calories; E03.9 Hypothyroidism, unspecified; Z86.73 Personal history of transient ischemic attack (TIA), and cerebral infarction without residual deficits; Z79.01 Long term (current) use of anticoagulants; Z87.891 Personal history of nicotine dependence; Z95.5 Presence of coronary angioplasty implant and graft; Z79.82 Long term (current) use of aspirin; Z79.84 Long term (current) use of oral hypoglycemic drugs; Z68.41 Body mass index [BMI] 40.0-44.9, adult
CPT/HCPCS: 45385; J2370; J2704; J3010; J7120